=== PATIENT | male | born 1955 | race Two or more races ===

== ENCOUNTER → 2020-05-15 | Emergency (ER) | payer MEDICARE, MEDICAID ==
[~2020-05-15] VITALS: Ht 182.9 cm; Wt 105.2 kg
[~2020-05-15] MED LIST: IOHEXOL 300 MG/ML 100ML BOTTLE IJ ONE; SODIUM CHLORIDE 0.9% 1,000 ML IV ONE
[2020-05-15 03:11] LABS: Basophils # (auto) 0.1 10 ^3/uL (0-0.2); Basophils % (auto) 0.7 % (0.0-2.0); Eosinophils # (auto) 0.2 10 ^3/uL (0-0.8); Eosinophils % (auto) 2.6 % (0.0-7.0); Hematocrit 38.7 % (41.0-53.0); Hemoglobin 13.3 g/dL (13.5-17.5); Lymphocytes # (auto) 1.4 10 ^3/uL (0.4-5.4); Lymphocytes % (auto) 19.1 % (10.0-50.0); Mean Corpuscular Hemoglobin 30.4 pg (28.0-32.0); Mean Corpuscular Hgb Conc. 34.4 g/dL (32.0-36.0); Mean Corpuscular Volume 88.5 fL (80.0-100.0); Monocytes # (auto) 0.8 10 ^3/uL (0-1.3); Monocytes % (auto) 10.3 % (0.0-12.0); Neutrophils # (auto) 4.9 10 ^3/uL (1.6-8.6); Neutrophils % (auto) 67.3 % (37.0-80.0); Platelet Count (auto) 176 10^3/uL (140-450); Red Blood Cells 4.37 10^6/uL (4.5-5.90); Red Cell Distribution Width 13.8 % (11.8-14.3); White Blood Cell 7.3 10^3/uL (4.4-10.8)
[2020-05-15 03:31] LABS: Albumin 3.8 g/dL (3.4-5.0); Amylase 55 U/L (25-115); Anion Gap 3 (5-15); Calcium 8.8 mg/dL (8.5-10.1); Carbon Dioxide 26 mmol/L (21-32); Chloride 109 mmol/L (98-107); Glucose 99 mg/dL (74-106); Lipase 91 U/L (73-393); Potassium 3.7 mmol/L (3.5-5.1); Sodium 138 mmol/L (136-145)
[2020-05-15 03:33] LABS: Alanine Aminotransferase 26 U/L (16-61); Aspartate Aminotransferase 12 U/L (15-37); Bilirubin, Total 0.9 mg/dL (0.2-1.0); GFR African American 98 mL/min; GFR Non-African American 81 mL/min; Total Protein 7.5 g/dL (6.4-8.2)
[2020-05-15 03:36] LABS: Alkaline Phosphatase 116 U/L (45-117)
[2020-05-15 03:40] LABS: BUN/Creatinine Ratio 10.1; Blood Urea Nitrogen 10 mg/dL (7-18)
[2020-05-15 03:45] LABS: Urine WBC None Seen /hpf (0 - 3)
[2020-05-15 03:54] LABS: Urine Bacteria NONE SEEN /hpf (None Seen); Urine Blood Negative /uL (Negative); Urine Specific Gravity 1.005 (1.001-1.035)
[2020-05-15 04:49] VITALS: BP 128/59
== END | disposition home or self-care (01) ==
LOC: EDBD 02:15 → ER 02:18
DX: K64.8 Other hemorrhoids (principal); I10 Essential (primary) hypertension; F41.9 Anxiety disorder, unspecified
CPT/HCPCS: 36415; 74177; 80053; 81001; 82150; 83605; 83690; 83880; 84484; 85025; 86850; 86900; 86901; 93005; 96360; 99285; J7030; Q9967

== ENCOUNTER 2025-02-10 08:10 | Inpatient (IN) | payer MEDICARE, MEDICAID ==
[~2025-02-10] VITALS: Ht 180.3 cm; Wt 105.6 kg
--- NOTE | 2025-02-10 08:47 | ED.PDOC ---
History of Present Illness HPI Comments Year old male came to the ER stating that he has been having abdominal pain which started few days ago progressively getting worse. Abdominal pain mostly in the left lower quadrant with no radiation of the pain. Patient had similar pain a month ago where he was treated at a different hospital with a diagnosis of diverticulitis. History of hypertension coronary artery disease. Denies any other symptoms. Chief Complaint: Abdominal Pain Time Seen by MD: 08:39 Primary Care Provider: jeaneth Reviewed Notes: Nurses Notes, Medications, Allergies Allergies: Coded Allergies: NO KNOWN ALLERGIES (Unverified , 05/15/20) Home Meds Reported Medications Doxazosin Mesylate (Doxazosin Mesylate) 4 Mg Tab, 1 TAB PO DAILY 02/10/25 Lisinopril (Lisinopril) 10 Mg Tab, 1 TAB PO DAILY 02/10/25 Aspirin (Aspirin Low Dose) 81 Mg Tab, 1 TAB PO DAILY 02/10/25 Hctz (Hydrochlorothiazide) 25 Mg Tab, 1 TAB PO DAILY 02/10/25 Information Source: Patient Mode of Arrival: Ambulatory Severity: Moderate Timing: Days Duration: Since onset Past Medical History PAST MEDICAL HISTORY: HTN, DC Surgical History: Denies all surgeries Family History Family History: Reviewed,noncontributory to illness Social History Smoker: Non-Smoker Alcohol: Denies ETOH Use Drugs: Denies Drug Use Lives In: Home Constitutional: denies: chills, diaphoresis, fatigue, fever, malaise, sweats, weakness, others EENTM: denies: blurred vision, double vision, ear bleeding, ear discharge, ear drainage, ear pain, ear ringing, eye pain, eye redness, hearing loss, mouth pain, mouth swelling, nasal discharge, nose bleeding, nose congestion, nose pain, photophobia, tearing, throat pain, throat swelling, voice changes, others Respiratory: denies: cough, hemoptysis, orthopnea, SOB at rest, shortness of breath, SOB with excertion, stridor, wheezing, others Cardiovascular: denies: chest pain, dizzy spells, diaphoresis, Dyspnea on exertion, edema, irregular heart beat, left arm pain, lightheadedness, palpitations, PND, syncope, others Gastrointestinal: reports: abdominal pain; denies: abdomen distended, blood streaked bowels, constipated, diarrhea, dysphagia, difficulty swallowing, hematemesis, melena, nausea, poor appetite, poor fluid intake, rectal bleeding, rectal pain, vomiting, others Genitourinary: denies: burning, dysuria, flank pain, frequency, hematuria, incontinence, penile discharge, penile sore, pain, testicle pain, testicle swelling, urgency, others Neurological: denies: dizziness, fainting, headache, left sided numbness, left sided weakness, numbness, paresthesia, pre-existing deficit, right sided nu mbness, right sided weakness, seizure, speech problems, tingling, tremors, weakness, others Musculoskeletal: denies: back pain, gout, joint pain, joint swelling, muscle pain, muscle stiffness, neck pain, others Integumetry: denies: bruises, change in color, change in hair/nails, dryness, laceration, lesions, lumps, rash, wounds, others Allergic/Immunocompromised: denies: Difficulty Healing, Frequent Infections, Hives, Itching, others Hematologic/Lymphatic: denies: anemia, blood clots, easy bleeding, easy bruising, swollen glands, others Endocrine: denies: excessive hunger, excessive sweating, excessive thirst, excessive urination, flushing, intolerance to cold, intolerance to heat, unexplained weight gain, unexplained weight loss, others Psychiatric: denies: anxiety, bipolar disorder, depression, hopeless, panic disorder, schizophrenia, sleepless, suicidal, others Physical Exam General Appearance: Moderate Distress HEENT: Normal ENT Inspection, Pharynx Normal, TMs Normal Neck: Full Range of Motion, Non-Tender, Normal, Normal Inspection Respiratory: Chest Non-Tender, Lungs Clear, No Accessory Muscle Use, No Respiratory Distress, Normal Breath Sounds Cardiovascular: No Edema, No JVD, No Murmur, No Gallop, Normal Peripheral Pulses, Regular Rate/Rhythm Breast Exam: Deferred Gastrointestinal: Diffuse Genitalia: Deferred Pelvic: Deferred Rectal: Deferred Extremities: No calf tenderness, Normal capillary refill, Normal inspection, Normal range of motion, Non-tender, No pedal edema Musculoskeletal : Apperance: Normal Neurologic: Alert, promotions specialist II-XII nml as Tested, No Motor Deficits, Normal Affect, Normal Mood, No Sensory Deficits Cerebellar Function: Normal Reflexes: Normal Skin: Dry, Normal Color, Warm Peripheral Pulses: 3+ Radial (R), 3+ Radial (L) Lymphatic: No Adenopathy Was a procedure done? Was a procedure done?: No EKG EKG : Pulse Rate (adult): 64 Cardiac Rhythm: NSR Differential Dx Considerations may include: Diverticulitis Electrolyte imbalance X-Ray, Labs, Meds, VS Vital Signs Date Time Temp Pulse Resp B/P (MAP) Pulse Ox O2 Delivery O2 Flow Rate FiO2 02/10/25 09:55 60 16 108/69 02/10/25 09:28 73 20 95 Room Air* 0 21 02/10/25 09:28 98.2 73 20 104/62 (76) 95 98.2 02/10/25 09:20 73 20 104/62 02/10/25 08:54 64 02/10/25 08:52 64 02/10/25 08:27 97.9 79 17 108/81 (90) 95 97.9 Lab Test 02/10/25 08:51 02/10/25 08:46 Range/Units Urine Color Yellow Yellow Urine Clarity Clear Clear Urine pH 5.5 5.0-9.0 Urine Specific [place] 1.024 1.001-1.035 Urine Protein Negative Negative Urine Ketones Negative Negative Urine Blood Negative Negative /uL Urine Nitrite Negative Negative Urine Bilirubin Negative Negative Urine Urobilinogen Normal Negative mg/dL Urine Leukocyte Esterase Negative Negative /uL Urine RBC 2 0 - 3 /hpf Urine Microscopic WBC < 1 0-3 /HPF Urine Squamous Epithelial Cells Few <5 /hpf Urine Bacteria None seen None Seen /hpf Urine Mucus Few None Seen Urine Glucose Normal Normal mg/dL White Blood Count 9.3 4.4-10.8 10^3/uL Red Blood Count 4.79 4.5-5.90 10^6/uL Hemoglobin 14.7 13.5-17.5 g/dL Hematocrit 42.4 41.0-53.0 % Mean Corpuscular Volume 88.6 80.0-100.0 fL Mean Corpuscular Hemoglobin 30.7 28.0-32.0 pg Mean Corpuscular Hemoglobin Concent 34.6 32.0-36.0 g/dL Red Cell Distribution Width 13.9 11.8-14.3 % Platelet Count 174 140-450 10^3/uL Mean Platelet Volume 9.0 6.9-10.8 fL Neutrophils (%) (Auto) 74.1 37.0-80.0 % Lymphocytes (%) (Auto) 14.7 10.0-50.0 % Monocytes (%) (Auto) 8.0 0.0-12.0 % Eosinophils (%) (Auto) 2.7 0.0-7.0 % Basophils (%) (Auto) 0.5 0.0-2.0 % Neutrophils # (Auto) 6.9 1.6-8.6 10 ^3/uL Lymphocytes # (Auto) 1.4 0.4-5.4 10 ^3/uL Monocytes # (Auto) 0.7 0-1.3 10 ^3/uL Eosinophils # (Auto) 0.3 0-0.8 10 ^3/uL Basophils # (Auto) 0 0-0.2 10 ^3/uL Nucleated Red Blood Cells 0.0 % Sodium Level 139 136-145 mmol/L Potassium Level 3.7 3.5-5.1 mmol/L Chloride Level 105 98-107 mmol/L Carbon Dioxide Level 27 20-31 mmol/L Anion Gap 7 5-15 Blood Urea Nitrogen 17 9-23 mg/dL Creatinine 1.10 0.700-1.30 mg/dL Glomerular Filtration Rate Calc 72 >90 mL/min BUN/Creatinine Ratio 15.5 10.0-20.0 Serum Glucose 110 H 74-106 mg/dL Calcium Level 9.6 8.7-10.4 mg/dL Current Medications Medications (Trade) Dose Ordered Sig/Callie Route Start Time Stop Time Status Last Admin Morphine Sulfate 4 mg ONCE ONCE IV 02/10/25 08:45 02/10/25 08:46 DC 02/10/25 09:20 Ondansetron HCl (Zofran) 4 mg ONCE ONCE IV 02/10/25 08:45 02/10/25 08:46 DC 02/10/25 09:19 Ceftriaxone Sodium 50 ml @ 100 mls/hr ONCE ONCE IV 02/10/25 09:45 02/10/25 10:14 DC 02/10/25 10:33 Metronidazole 100 ml @ 100 mls/hr ONCE ONCE IV 02/10/25 09:45 02/10/25 10:44 DC 02/10/25 09:[address] [address] Ph: [phone] DIAGNOSTIC IMAGING Diagnostic Imaging Report : [id number] Signed PATIENT: GERRY LEWIS ACCT: [id number] UNIT: [id number] : 1955 LOC: ER ROOM / BED: / AGE / SEX: 69 / M ADM STATUS: REG ER SERVICE 0 ORDERING PHYSICIAN: JF BOWMAN MD PROCEDURE(s): ABPL - CT AB PEL WO CON-NO ORAL OR IV REASON: diverticulitis ORDER NUMBER(s): [id number], ACCESSION NUMBER(s): [id number] CT CT AB PEL WO CON-NO ORAL OR IV INDICATION: diverticulitis EXAM DATE: 02/10/2025 08:55 AM COMPARISON: None RADIATION DOSE: CTDIvol: 17.32 mGy, DLP: 1102.27 mGy*cm PROCEDURE: Helical CT images were obtained of the abdomen and pelvis without IV contrast Sagittal and coronal reconstructions are provided. ORAL CONTRAST: None. ADDITIONAL IMAGES / REFORMATS: None All CT scans at this medical facility are performed using dose modulation techniques as appropriate to a performed exam including the following: Automated exposure control was utilized; adjustment of the MA and/or KV according to patient size; and use of iterative reconstruction technique. FINDINGS: LUNG BASE: Normal. LIVER: Normal. GALLBLADDER AND BILIARY TREE: Gallstones are seen in the gallbladder. No intra- or extrahepatic biliary ductal dilation. PANCREAS: Normal. SPLEEN: Normal. BOWEL: There is moderate colonic diverticulosis with mild fat stranding at the sigmoid could be mild diverticulitis.. The appendix is normal. ADRENALS: Normal. KIDNEYS AND URETER: Normal. BLADDER: Normal. REPRODUCTIVE ORGANS: Normal. LYMPH NODES:No lymphadenopathy. PERITONEUM: No ascites or free air. No other fluid collection. VESSELS: Scattered atherosclerotic calcifications are noted. Similar position of the aortic endograft with limb extenders. RETROPERITONEUM: Normal. ABDOMINAL WALL: There is postsurgical change with a abdominal hernia mesh repair. BONES: Scattered osseous degenerative changes are noted. IMPRESSION: Moderate colonic diverticulosis with mild fat stranding at the sigmoid could be mild diverticulitis. Cholelithiasis. ATED BY: GERARDO VICENTE MD DICTATED DATE/TIME: 02/10/25929 SIGNED BY: GERARDO VICENTE MD SIGNED DATE/TIME: 05/11/25 0930 CC: Patient alert. Complaining of abdominal pain. Vitals stable. Answering questions. He is tender in the left lower quadrant. Possible diverticulitis. Establish intravenous access. Was given fluids. Was given morphine. Was given Zofran. Was given Rocephin. Was given Flagyl. Explained to the patient. Continue monitoring. EKG reviewed does not show any acute changes. CT scan of the abdomen reveals diverticulitis. Time of 1ST Reevaluation: 08:46 Reevaluation 1ST: Unchanged Patient Education/Counseling: Diagnosis, Treatment, Prognosis Family Education/Counseling: No Family Present Departure 1 Departure Time of Disposition: 08:46 Impression: Primary Impression: Acute abdominal pain Additional Impression: Diverticulitis of intestine Qualified Codes: K57.92 - Diverticulitis of intestine, part unspecified, without perforation or abscess without bleeding Disposition: ADMITTED INPATIENT Admit to: Med Surg Condition: Guarded Critical Care Note Critical Care Time?: Yes (90 min-critical care time only) Critical care comment: Patient continues to have abdominal pain Stability Stability form required: No Heart Score Heart Score: Heart Score Response (Comments) Value History Slightly Suspicious 0 EKG Normal 0 Age >65 2 Risk Factors >3 or Hx ASHD 2 Troponin Normal limit 0 Total 4 I personally scribed for JF BOWMAN MD ([email or web address]) on 02/10/25 at 09:53. Electronically submitted by Oseas High ([email or web address]). JF BOWMAN MD February 10, 2025 08:47
[2025-02-10 08:52] LABS: Urine Bacteria None Seen /hpf (None Seen)
[2025-02-10 08:54] LABS: Basophils # (auto) 0 10 ^3/uL (0-0.2); Basophils % (auto) 0.5 % (0.0-2.0); Eosinophils # (auto) 0.3 10 ^3/uL (0-0.8); Eosinophils % (auto) 2.7 % (0.0-7.0); Hematocrit 42.4 % (41.0-53.0); Hemoglobin 14.7 g/dL (13.5-17.5); Lymphocytes # (auto) 1.4 10 ^3/uL (0.4-5.4); Lymphocytes % (auto) 14.7 % (10.0-50.0); Mean Corpuscular Hemoglobin 30.7 pg (28.0-32.0); Mean Corpuscular Hgb Conc. 34.6 g/dL (32.0-36.0); Mean Corpuscular Volume 88.6 fL (80.0-100.0); Monocytes # (auto) 0.7 10 ^3/uL (0-1.3); Neutrophils # (auto) 6.9 10 ^3/uL (1.6-8.6); Neutrophils % (auto) 74.1 % (37.0-80.0); Platelet Count (auto) 174 10^3/uL (140-450); Red Blood Cells 4.79 10^6/uL (4.5-5.90); Red Cell Distribution Width 13.9 % (11.8-14.3); White Blood Cell 9.3 10^3/uL (4.4-10.8)
--- NOTE | 2025-02-10 08:56 | ECG ---
[facility] Test Date: 2025-02-10 Test Time: 08:52:38 Pat Name: GERRY LEWIS Department: ER Room: 0251 Gender: M Principal Security Architect: MARISSA : 1955 Requested By: JF BOWMAN Order Number: [id number] Reading MD: Vishal Walter Measurements Intervals [place] Rate: 64 P: 261 MA: 103 QRS: 48 QRSD: 100 T: 10 QT: 409 QTc: 422 Interpretive Statements Ectopic atrial rhythm Short MA interval Electronically Signed On 02-13-2025 12:43:00 PDT by Vishal Walter Please click the below link to view image of tracing.
[2025-02-10 09:03] LABS: Urine Blood Negative /uL (Negative); Urine Clarity Clear (Clear); Urine Color Yellow (Yellow); Urine Mucus FEW (None Seen); Urine Protein, UAD Negative (Negative); Urine Specific Gravity 1.024 (1.001-1.035); Urine Squamous Epithelial Cell FEW /hpf (<5); Urine Urobilinogen Normal (Negative); Urine WBC < 1 /HPF (0-3); Urine pH 5.5 (5.0-9.0)
[2025-02-10 09:08] LABS: Chloride 105 mmol/L (98-107); Potassium 3.7 mmol/L (3.5-5.1); Sodium 139 mmol/L (136-145)
[2025-02-10 09:09] LABS: Anion Gap 7 (5-15); Carbon Dioxide 27 mmol/L (20-31)
[2025-02-10 09:10] LABS: Calcium 9.6 mg/dL (8.7-10.4)
[2025-02-10 09:15] LABS: BUN/Creatinine Ratio 15.5 (10.0-20.0); Blood Urea Nitrogen 17 mg/dL (9-23); Glucose 110 mg/dL (74-106)
[2025-02-10] MEDS: ONDANSETRON HCL 4 MG/2 ML VIAL IV ONE (09:19)
[2025-02-10] MEDS: MORPHINE SULFATE 4 MG/ML SYR/VIAL IV ONE (09:20)
[2025-02-10 09:28] VITALS: PULSE 73; RESP 20; O2SAT 95
--- NOTE | 2025-02-10 09:32 | DVH ---
CT CT AB PEL WO CON-NO ORAL OR IV INDICATION: diverticulitis EXAM DATE: 02/10/2025 08:55 AM COMPARISON: None RADIATION DOSE: CTDIvol: 17.32 mGy, DLP: 1102.27 mGy*cm PROCEDURE: Helical CT images were obtained of the abdomen and pelvis without IV contrast Sagittal and coronal reconstructions are provided. ORAL CONTRAST: None. ADDITIONAL IMAGES / REFORMATS: None All C T scans at this medical facility are performed using dose modulation techniques as appropriate to a p erformed exam including the following: Automated exposure control was utilized; adjustment of the MA and/or KV according to patient size; and use of iterative reconstruction technique. FINDINGS: LUNG BASE: Normal. LIVER: Normal. GALLBLADDER AND BILIARY TREE: Gallstones are seen in the gallbladder. No intra- or extrahepatic bilia ry ductal dilation. PANCREAS: Normal. SPLEEN: Normal. BOWEL: There is moderate colonic diverticulosis with mild fat stranding at the sigmoid could be mild diverticulitis.. The appendix is normal. ADRENALS: Normal. KIDNEYS AND URETER: Normal. BLADDER: Normal. REPRODUCTIVE ORGANS: Normal. LYMPH NODES:No lymphadenopathy. PERITONEUM: No ascites or free air. No other fluid collection. VESSELS: Scattered atherosclerotic calcifications are noted. Similar position of the aortic endograft with limb extenders. RETROPERITONEUM: Normal. ABDOMINAL WALL: There is postsurgical change with a abdominal hernia mesh repair. BONES: Scattered osseous degenerative changes are noted. IMPRESSION: Moderate colonic diverticulosis with mild fat stranding at the sigmoid could be mild diverticulitis. Cholelithiasis.
[2025-02-10] MEDS: metroNIDAZOLE 500MG/100ML 100 ML IV ONE (09:45)
[2025-02-10] MEDS: cefTRIAXone 1GM/50ML D5W 50 ML IV ONE (10:33)
[2025-02-10] MEDS ORDERED: DOXA4TAB83 PO ×2 (12:07→18:44)
[2025-02-10] MEDS ORDERED: LISI10TA34 PO (12:07)
[2025-02-10] MEDS ORDERED: HYDR25TA5 PO (12:07)
[2025-02-10] MEDS ORDERED: ASPI-325 PO (12:07)
[2025-02-10] MEDS ORDERED: ONDANSETRON HCL 4 MG/2 ML VIAL IV PRN (12:15)
[2025-02-10] MEDS ORDERED: HYDROcodone-ACET 5/325MG TAB PO PRN (12:15)
[2025-02-10] MEDS ORDERED: ACETAMINOPHEN 325 MG TAB PO PRN (12:15)
[2025-02-10] MEDS ORDERED: hydrALAZINE HCL 20 MG/ML VL IV PRN (12:15)
[2025-02-10] MEDS ORDERED: MORPHINE SULFATE INJ 2 MG/ml SYRG IV PRN (12:15)
--- NOTE | 2025-02-10 12:15 | DVHHP2 ---
History of Present Illness Reason for Visit: Abdominal pain History of Present Illness This 69-year-old male presents in the ED with a chief complaint of abdominal pain. The patient reports left lower quadrant abdominal pain started yesterday. Symptoms is associated with lightheadedness. Denies fever, chills, nausea, vomiting, diarrhea, or melena. Last bowel movement reported today. Past medical history of diverticulitis, hypertension, and obesity. Past Medical History As stated in HPI Past Surgical History Denies Family History Reviewed, non-contributory to the management of this case. Past Social History The patient lives at home, denies smoking, alcohol or illicit drugs abuse. Review of Systems Constitutional: Yes: Malaise; No: Fever, Chills, Sweats, Weakness, Other Eyes: No: Pain, Vision change, Conjunctivae inflammation, Eyelid inflammation, Other, Redness ENT: No: Ear pain, Ear discharge, Nose pain, Nose discharge, Nose congestion, Mouth pain, Mouth swelling, Throat pain, Throat swelling, Other Respiratory: No: Cough, Dry, Shortness of breath, SOB with excertion, Wheezing, Hemoptysis, Pleuritic Pain, Sputum, Wheezing, Other Cardiovascular: No: Chest Pain, Palpitations, Orthopnea, Paroxysmal Noc. Dyspnea, Edema, Lt Headedness, Other Gastrointestinal: Abdominal Pain; No: Nausea, Vomiting, Diarrhea, Constipation, Melena, Hematochezia, Other Genitourinary: No Dysuria, No Frequency, No Incontinence, No Hematuria, No Retention, No Other Musculoskeletal: No: other, neck pain, shoulder pain, arm pain, back pain, hand pain, leg pain, foot pain Skin: No: Rash, Lesions, Jaundice, Bruising, Other Neurological: No: Weakness, Numbness, Incoordination, Change in speech, Confusion, Seizures, Other Allergies: Coded Allergies: NO KNOWN ALLERGIES (Unverified , 05/15/20) Medications Current Medications Medications Dose Ordered Sig/Callie Route Start Time Stop Time Status Last Admin Dose Admin Sodium Chloride 1,000 ml @ 75 mls/hr [id number] IV 02/10/25 12:15 UNV Acetaminophen/ Hydrocodone Bitart 1 tab Q4HP PRN PO 02/10/25 12:15 UNV Ondansetron HCl 4 mg Q4HP PRN IV 02/10/25 12:15 UNV Enoxaparin Sodium 40 mg DAILY SC 5/12/25 10:00 UNV Acetaminophen 650 mg Q6HP PRN PO 02/10/25 12:15 UNV Morphine Sulfate 2 mg Q4HPRN PRN IV 02/10/25 12:15 UNV Metronidazole 100 ml @ 100 mls/hr Q8HR IV 02/10/25 14:00 UNV Ceftriaxone Sodium 50 ml @ 100 mls/hr DAILY@09 IV 02/11/25 09:00 UNV Pantoprazole Sodium 40 mg DAILY IV 02/11/25 10:00 UNV Hydralazine HCl 10 mg Q6HP PRN IV 02/10/25 12:15 UNV Aspirin 81 mg DAILY PO 02/11/25 10:00 UNV Hydrochlorothiazide 25 mg DAILY PO 02/11/25 10:00 UNV Patient Own Medication 1 tab DAILY PO 02/11/25 10:00 UNV Patient Own Medication 1 tab DAILY PO 02/11/25 10:00 UNV Exam Vital Signs Vital Signs Date Time Temp Pulse Resp B/P (MAP) Pulse Ox O2 Delivery O2 Flow Rate FiO2 02/10/25 09:55 60 16 108/69 02/10/25 09:28 95 Room Air* 0 21 02/10/25 09:28 98.2 98.2 General Appearance: Alert, Oriented X3, Cooperative, mild distress HEENT: Atraumatic, PERRLA Respiratory: Clear to auscultation, Normal air movement Cardiovascular: Regular rate, Normal S1, Normal S2 Abdominal: Normal bowel sounds, Soft, Other (Mild tenderness to left lower quadrant) Extremities: No clubbing, No cyanosis, No edema Skin: No rashes, No breakdown Neuro: Normal gait, Normal speech Psych/Mental Status: Mental status NL Labs/Xrays Labs Test 02/10/25 08:51 02/10/25 08:46 Range/Units Urine Color Yellow Yellow Urine Clarity Clear Clear Urine pH 5.5 5.0-9.0 Urine Specific [place] 1.024 1.001-1.035 Urine Protein Negative Negative Urine Ketones Negative Negative Urine Blood Negative Negative /uL Urine Nitrite Negative Negative Urine Bilirubin Negative Negative Urine Urobilinogen Normal Negative mg/dL Urine Leukocyte Esterase Negative Negative /uL Urine RBC 2 0 - 3 /hpf Urine Microscopic WBC < 1 0-3 /HPF Urine Squamous Epithelial Cells Few <5 /hpf Urine Bacteria None seen None Seen /hpf Urine Mucus Few None Seen Urine Glucose Normal Normal mg/dL White Blood Count 9.3 4.4-10.8 10^3/uL Red Blood Count 4.79 4.5-5.90 10^6/uL Hemoglobin 14.7 13.5-17.5 g/dL Hematocrit 42.4 41.0-53.0 % Mean Corpuscular Volume 88.6 80.0-100.0 fL Mean Corpuscular Hemoglobin 30.7 28.0-32.0 pg Mean Corpuscular Hemoglobin Concent 34.6 32.0-36.0 g/dL Red Cell Distribution Width 13.9 11.8-14.3 % Platelet Count 174 140-450 10^3/uL Mean Platelet Volume 9.0 6.9-10.8 fL Neutrophils (%) (Auto) 74.1 37.0-80.0 % Lymphocytes (%) (Auto) 14.7 10.0-50.0 % Monocytes (%) (Auto) 8.0 0.0-12.0 % Eosinophils (%) (Auto) 2.7 0.0-7.0 % Basophils (%) (Auto) 0.5 0.0-2.0 % Neutrophils # (Auto) 6.9 1.6-8.6 10 ^3/uL Lymphocytes # (Auto) 1.4 0.4-5.4 10 ^3/uL Monocytes # (Auto) 0.7 0-1.3 10 ^3/uL Eosinophils # (Auto) 0.3 0-0.8 10 ^3/uL Basophils # (Auto) 0 0-0.2 10 ^3/uL Nucleated Red Blood Cells 0.0 % Sodium Level 139 136-145 mmol/L Potassium Level 3.7 3.5-5.1 mmol/L Chloride Level 105 98-107 mmol/L Carbon Dioxide Level 27 20-31 mmol/L Anion Gap 7 5-15 Blood Urea Nitrogen 17 9-23 mg/dL Creatinine 1.10 0.700-1.30 mg/dL Glomerular Filtration Rate Calc 72 >90 mL/min BUN/Creatinine Ratio 15.5 10.0-20.0 Serum Glucose 110 H 74-106 mg/dL Calcium Level 9.6 8.7-10.4 mg/dL PATRICIA: diverticulitis ORDER NUMBER(s): [id number], ACCESSION NUMBER(s): [id number] CT CT AB PEL WO CON-NO ORAL OR IV INDICATION: diverticulitis EXAM DATE: 02/10/2025 08:55 AM COMPARISON: None RADIATION DOSE: CTDIvol: 17.32 mGy, DLP: 1102.27 mGy*cm PROCEDURE: Helical CT images were obtained of the abdomen and pelvis without IV contrast Sagittal and coronal reconstructions are provided. ORAL CONTRAST: None. ADDITIONAL IMAGES / REFORMATS: None All CT scans at this medical facility are performed using dose modulation techniques as appropriate to a performed exam including the following: Automated exposure control was utilized; adjustment of the MA and/or KV according to patient size; and use of iterative reconstruction technique. FINDINGS: LUNG BASE: Normal. LIVER: Normal. GALLBLADDER AND BILIARY TREE: Gallstones are seen in the gallbladder. No intra- or extrahepatic biliary ductal dilation. PANCREAS: Normal. SPLEEN: Normal. BOWEL: There is moderate colonic diverticulosis with mild fat stranding at the sigmoid could be mild diverticulitis.. The appendix is normal. ADRENALS: Normal. KIDNEYS AND URETER: Normal. BLADDER: Normal. REPRODUCTIVE ORGANS: Normal. LYMPH NODES:No lymphadenopathy. PERITONEUM: No ascites or free air. No other fluid collection. VESSELS: Scattered atherosclerotic calcifications are noted. Similar position of the aortic endograft with limb extenders. RETROPERITONEUM: Normal. ABDOMINAL WALL: There is postsurgical change with a abdominal hernia mesh repair. BONES: Scattered osseous degenerative changes are noted. IMPRESSION: Moderate colonic diverticulosis with mild fat stranding at the sigmoid could be mild diverticulitis. Cholelithiasis. Assessment/Plan Assessment/Plan # acute mild diverticulitis # hx of diverticulitis # acute left lower quadrant abdominal pain Admit to M/S unit Complete bowel rest IV fluid PPI Empiric antibiotics Pain control Monitor # hypertension Continue with lisinopril and hydrochlorothiazide Hydralazine as needed Monitor # BPH Doxazosin # obesity Lifestyle modification counseled on weight loss and regular exercise DVT prophylaxis Medical plan discussed with patient Plan discussed with: Patient My Orders Orders - JUAN HENDERSON [employer]QUIPMENT MECH[employer] Procedure Category Date Status Time Admit ADMIT 02/10/25 Transmitted 12:03 Code Status CODE 02/10/25 Transmitted 12:03 Sodium Chloride 0.9% PHA 02/10/25 Logged 12:15 Hydrocodone-Acet PHA 02/10/25 Logged 5/325mg Tab ([place] 12:15 Ondansetron Hcl PHA 02/10/25 Logged (Zofran) 12:15 Enoxaparin Sodium PHA 02/11/25 Logged (Lovenox) 10:00 Fall Risk Precautions MONICA 02/10/[address] 12:03 Complete Blood Count LAB 02/11/25 Verified 04:00 Comprehensive LAB 02/11/25 Verified Metabolic Panel 04:00 Npo (Nothing By DIET 02/10/25 Transmitted Mouth) Diet Lunch Condition: Fair MONICA 02/10/25 In Process 12:03 Acetaminophen Tablet PHA 02/10/25 Logged (Tylenol Tablet) 12:15 Morphine Sulfate PHA 02/10/25 Logged Injection 12:15 Blood Culture DAVID 02/10/25 Logged 12:03 Metronidazole PHA 02/10/25 Logged 500mg/100ml (Flagyl 14:00 Ceftriaxone 1gm/50ml PHA 02/11/25 Logged D5w (Rocephin) 09:00 Pantoprazole PHA 02/10/25 Logged (Protonix) 12:15 Pantoprazole PHA 02/11/25 Logged (Protonix) 10:00 Hydralazine Injection PHA 02/10/25 Logged (Apresoline Inject 12:15 Aspirin Enteric PHA 02/11/25 Logged Coated Tablet 10:00 Hydrochlorothiazide PHA 02/11/25 Logged Tablet (Hydrochlorot 10:00 (Nf) Doxazosin PHA 02/11/25 Logged Mesylate 10:00 (Nf) Lisinopril PHA 02/11/25 Logged 10:00 Date of Service: February 10, 2025 Billing Provider: JUAN HENDERSON Common Visit Codes: 42999-PHIYCDC INP/OBS CARE (HIGH) Consultation Codes: 44973-[id number] CONSULT <45MIN JUAN HENDERSON February 10, 2025 12:15
[2025-02-10] MEDS: SODIUM CHLORIDE 0.9% 1,000 ML IV SCH (12:47)
[2025-02-10 14:00] VITALS: BP 116/64; PULSE 51; RESP 18; TEMP 98.5; O2SAT 96
[2025-02-10 14:01] VITALS: BP 116/64; PULSE 51; RESP 18; TEMP 98.5; O2SAT 96
[2025-02-10] MEDS: PANTOPRAZOLE 40 MG/10 ML VIAL INJ IV ONE (15:12)
[2025-02-10] MEDS: metroNIDAZOLE 500MG/100ML 100 ML IV SCH (16:18)
[2025-02-10 18:02] VITALS: BP 132/61; PULSE 56; RESP 16; TEMP 98.1; O2SAT 96
[2025-02-10] MEDS ORDERED: [UNRECOGNIZED DRUG - CODE] PO (18:44)
[2025-02-10] MEDS ORDERED: IBUP-1455 PO (18:44)
[2025-02-10] MEDS ORDERED: ATOR80TA PO (18:44)
[2025-02-10 20:00] VITALS: RESP 18; O2SAT 97
[2025-02-10 21:00] VITALS: BP 127/63; PULSE 53; RESP 14; TEMP 98.1; O2SAT 95
[2025-02-11] VITALS (7 sets, daily range): BP systolic 105–131; BP diastolic 60–67; PULSE 46–65; RESP 14–18; TEMP 97.6–98.3; O2SAT 94–98
[2025-02-11 07:55] LABS: Alanine Aminotransferase 24 U/L (7-40); Albumin 3.9 g/dL (3.2-4.8); Alkaline Phosphatase 94 U/L (46-116); Anion Gap 9 (5-15); Aspartate Aminotransferase 15 U/L (13-40); BUN/Creatinine Ratio 16.7 (10.0-20.0); Blood Urea Nitrogen 16 mg/dL (9-23); Carbon Dioxide 26 mmol/L (20-31); Chloride 106 mmol/L (98-107); Glucose 95 mg/dL (74-106); Sodium 141 mmol/L (136-145); Total Protein 6.4 g/dL (5.7-8.2)
[2025-02-11 07:56] LABS: Bilirubin, Total 1.2 mg/dL (0.2-1.0)
[2025-02-11 07:57] LABS: Potassium 3.5 mmol/L (3.5-5.1)
[2025-02-11 08:09] LABS: Basophils # (auto) 0 10 ^3/uL (0-0.2); Basophils % (auto) 0.4 % (0.0-2.0); Eosinophils # (auto) 0.3 10 ^3/uL (0-0.8); Eosinophils % (auto) 4.3 % (0.0-7.0); Hematocrit 38.1 % (41.0-53.0); Hemoglobin 12.9 g/dL (13.5-17.5); Lymphocytes # (auto) 1.4 10 ^3/uL (0.4-5.4); Lymphocytes % (auto) 21.1 % (10.0-50.0); Mean Corpuscular Hemoglobin 30.1 pg (28.0-32.0); Mean Corpuscular Hgb Conc. 33.9 g/dL (32.0-36.0); Mean Corpuscular Volume 88.8 fL (80.0-100.0); Monocytes # (auto) 0.7 10 ^3/uL (0-1.3); Monocytes % (auto) 10.2 % (0.0-12.0); Neutrophils # (auto) 4.1 10 ^3/uL (1.6-8.6); Nucleated Red Blood Cells % 0.1 %; Platelet Count (auto) 145 10^3/uL (140-450); Red Cell Distribution Width 13.8 % (11.8-14.3); White Blood Cell 6.4 10^3/uL (4.4-10.8)
[2025-02-11] MEDS ORDERED: hydroCHLOROthiazide 25 MG TAB PO SCH (10:00)
[2025-02-11] MEDS: PANTOPRAZOLE 40 MG/10 ML VIAL INJ IV SCH (10:46)
[2025-02-11] MEDS: cefTRIAXone 1GM/50ML D5W 50 ML IV SCH (10:46)
[2025-02-11] MEDS: ASPirin-EC 81 mg tab PO SCH (10:46)
[2025-02-11] MEDS: ENOXAPARIN SOD 40 MG/0.4 ML SYRINGE SC SCH (10:48)
--- NOTE | 2025-02-11 11:23 | DVHPN2 ---
Progress Note Date Seen: February 11, 2025 Medical Necessity Reason Pt with a Central, PICC or Fol: No Subjective Patient reports: No new complaints Review of Systems: HEENT:Normal, CVS:Normal, RESPIRATORY:Normal, GI:Normal, :Normal, MSK:Normal, NEURO:Normal Objective vital signs Vital Sign Date Time Temp Pulse Resp B/P (MAP) Pulse Ox O2 Delivery O2 Flow Rate FiO2 02/11/25 09:00 97.9 48 17 119/67 (84) 96 97.9 02/11/25 08:00 Room Air* 0 21 Total Intake and Output 02/10/25 02/10/25 02/11/25 15:00 23:00 07:00 Intake Total 150 ml 450 ml 700 ml Balance 150 ml 450 ml 700 ml medications Current Medications Medications Dose Ordered Sig/Callie Route Start Time Stop Time Status Last Admin Dose Admin Sodium Chloride 1,000 ml @ 75 mls/hr [id number] IV 02/10/25 12:15 02/11/25 01:35 75 MLS/HR Acetaminophen/ Hydrocodone Bitart 1 tab Q4HP PRN PO 02/10/25 12:15 Ondansetron HCl 4 mg Q4HP PRN IV 02/10/25 12:15 Enoxaparin Sodium 40 mg DAILY SC 02/11/25 10:00 02/11/25 10:48 40 MG Acetaminophen 650 mg Q6HP PRN PO 02/10/25 12:15 Morphine Sulfate 2 mg Q4HPRN PRN IV 02/10/25 12:15 Metronidazole 100 ml @ 100 mls/hr Q8HR IV 02/10/25 16:00 02/11/25 05:08 100 MLS/HR Ceftriaxone Sodium 50 ml @ 100 mls/hr DAILY@09 IV 02/11/25 09:00 02/11/25 10:46 100 MLS/HR Pantoprazole Sodium 40 mg DAILY IV 02/11/25 10:00 02/11/25 10:46 40 MG Hydralazine HCl 10 mg Q6HP PRN IV 02/10/25 12:15 Aspirin 81 mg DAILY PO 02/11/25 10:00 02/11/25 10:46 81 MG Hydrochlorothiazide 25 mg DAILY PO 02/11/25 10:00 Doxazosin Mesylate 4 mg DAILY PO 02/11/25 10:00 Lisinopril 10 mg DAILY PO 02/11/25 10:00 Examination: GENERAL:Normal, HEENT:Normal, NECK:Normal, LUNGS:Normal, CVS:Normal, ABDOMEN:Normal, MSK:Normal, SKIN:Normal, NEURO:Normal, :Normal laboratory and microbiology Laboratory Tests 02/11/25 06:58 Test 02/11/25 06:58 Range/Units Serum Glucose 95 74-106 mg/dL Problem List/Assessment/Plan Problem List/Assessment/Plan #1 acute diverticulitis: iv antibiotics, ivf #2 htn #3 cad #4 gallstones #5 obesity #6 h/o prostate cancer advance care planning- full code- time spent 18 mins Plan discussed with: Patient Date of Service: February 11, 2025 Billing Provider: BRAYAN ZAYAS MD Common Visit Codes: [id number] INP/OBS CARE(HIGH) Secondary Visit Codes: [id number] CARE PLAN 30 MINUTES BRAYAN ZAYAS MD February 11, 2025 11:23
[2025-02-11] MEDS: DOXAZOSIN MESYL 2 MG TAB PO SCH ×2 (14:55→22:00)
[2025-02-11] MEDS: LISINOPRIL 5 MG TAB PO SCH (14:55)
[2025-02-12] VITALS (8 sets, daily range): BP systolic 112–134; BP diastolic 50–66; PULSE 54–67; RESP 14–20; TEMP 97.5–98.1; O2SAT 94–100
[2025-02-12 07:45] LABS: Basophils # (auto) 0 10 ^3/uL (0-0.2); Basophils % (auto) 0.2 % (0.0-2.0); Eosinophils # (auto) 0.2 10 ^3/uL (0-0.8); Hematocrit 38.4 % (41.0-53.0); Hemoglobin 12.9 g/dL (13.5-17.5); Lymphocytes # (auto) 1.2 10 ^3/uL (0.4-5.4); Lymphocytes % (auto) 17.4 % (10.0-50.0); Mean Corpuscular Hemoglobin 30.1 pg (28.0-32.0); Mean Corpuscular Hgb Conc. 33.6 g/dL (32.0-36.0); Mean Corpuscular Volume 89.7 fL (80.0-100.0); Monocytes # (auto) 0.7 10 ^3/uL (0-1.3); Monocytes % (auto) 9.8 % (0.0-12.0); Neutrophils # (auto) 4.7 10 ^3/uL (1.6-8.6); Neutrophils % (auto) 69.6 % (37.0-80.0); Platelet Count (auto) 146 10^3/uL (140-450); Red Blood Cells 4.29 10^6/uL (4.5-5.90); White Blood Cell 6.8 10^3/uL (4.4-10.8)
--- NOTE | 2025-02-12 10:49 | DVHPN2 ---
Progress Note Date Seen: February 12, 2025 Medical Necessity Reason Pt with a Central, PICC or Fol: No Subjective Patient reports: No new complaints Review of Systems: HEENT:Normal, CVS:Normal, RESPIRATORY:Normal, GI:Normal, :Normal, MSK:Normal, NEURO:Normal Objective vital signs Vital Sign Date Time Temp Pulse Resp B/P (MAP) Pulse Ox O2 Delivery O2 Flow Rate FiO2 02/12/25 10:39 137/63 02/12/25 09:00 97.7 61 20 95 97.7 02/12/25 08:00 Room Air* 0 21 Total Intake and Output 02/11/25 02/11/25 02/12/25 15:00 23:00 07:00 Intake Total 50 ml 1050 ml 1100 ml Balance 50 ml 1050 ml 1100 ml medications Current Medications Medications Dose Ordered Sig/Callie Route Start Time Stop Time Status Last Admin Dose Admin Sodium Chloride 1,000 ml @ 75 mls/hr [id number] IV 02/10/25 12:15 02/12/25 05:30 75 MLS/HR Acetaminophen/ Hydrocodone Bitart 1 tab Q4HP PRN PO 02/10/25 12:15 Ondansetron HCl 4 mg Q4HP PRN IV 02/10/25 12:15 Acetaminophen 650 mg Q6HP PRN PO 02/10/25 12:15 Morphine Sulfate 2 mg Q4HPRN PRN IV 02/10/25 12:15 Metronidazole 100 ml @ 100 mls/hr Q8HR IV 02/10/25 16:00 02/12/25 05:31 100 MLS/HR Ceftriaxone Sodium 50 ml @ 100 mls/hr DAILY@09 IV 02/11/25 09:00 02/12/25 10:41 100 MLS/HR Pantoprazole Sodium 40 mg DAILY IV 02/11/25 10:00 02/12/25 10:40 40 MG Hydralazine HCl 10 mg Q6HP PRN IV 02/10/25 12:15 Aspirin 81 mg DAILY PO 02/11/25 10:00 02/12/25 10:39 81 MG Doxazosin Mesylate 4 mg DAILY PO 02/11/25 10:00 02/12/25 10:39 4 MG Lisinopril 10 mg DAILY PO 02/11/25 10:00 02/12/25 10:39 10 MG Doxazosin Mesylate 4 mg HS PO 02/11/25 22:00 02/11/25 22:00 4 MG Examination: GENERAL:Normal, HEENT:Normal, NECK:Normal, LUNGS:Normal, CVS:Normal, ABDOMEN:Normal, MSK:Normal, SKIN:Normal, NEURO:Normal, :Normal laboratory and microbiology Laboratory Tests 02/12/25 06:33 02/11/25 06:58 Test 02/11/25 06:58 Range/Units Serum Glucose 95 74-106 mg/dL Microbiology Date/Time Source Procedure Growth Status 02/10/25 12:58 Blood Blood Culture - Preliminary NO GROWTH AFTER 24 HOURS OF INCUBATION. Resulted Problem List/Assessment/Plan Problem List/Assessment/Plan #1 acute diverticulitis: iv antibiotics, ivf, advance diet #2 htn #3 cad #4 gallstones #5 obesity #6 h/o prostate cancer advance care planning- full code- time spent 18 mins Plan discussed with: Patient My Orders My Orders Orders - BRAYAN ZAYAS MD Procedure Category Date Status Time Clear Liq Diet DIET 02/11/25 Transmitted Lunch Doxazosin Mesyl PHA 02/11/25 In Process Tablet (Cardura 22:00 Date of Service: February 12, 2025 Billing Provider: BRAYAN ZAYAS MD Common Visit Codes: [id number] INP/OBS CARE(HIGH) BRAYAN ZAYAS MD February 12, 2025 10:49
[2025-02-13 01:00] VITALS: BP 116/65; PULSE 55; RESP 18; TEMP 98.3; O2SAT 96
[2025-02-13 05:00] VITALS: BP 116/65; PULSE 62; RESP 18; TEMP 98.2; O2SAT 95
[2025-02-13 09:00] VITALS: BP 102/55; PULSE 53; RESP 18; TEMP 98.1; O2SAT 96
--- NOTE | 2025-02-13 10:07 | DVHDS2 ---
Discharge Summary Date of Admission February 10, 2025 at 12:03 Date of Discharge: February 13, 2025 Labs/Diagnostic Data: Laboratory Results Test 02/12/25 06:33 02/11/25 06:58 02/10/25 08:51 White Blood Count 6.8 10^3/uL (4.4-10.8) Red Blood Count 4.29 10^6/uL (4.5-5.90) Hemoglobin 12.9 g/dL (13.5-17.5) Hematocrit 38.4 % (41.0-53.0) Mean Corpuscular Volume 89.7 fL (80.0-100.0) Mean Corpuscular Hemoglobin 30.1 pg (28.0-32.0) Mean Corpuscular Hemoglobin Concent 33.6 g/dL (32.0-36.0) Red Cell Distribution Width 14.0 % (11.8-14.3) Platelet Count 146 10^3/uL (140-450) Mean Platelet Volume 9.7 fL (6.9-10.8) Neutrophils (%) (Auto) 69.6 % (37.0-80.0) Lymphocytes (%) (Auto) 17.4 % (10.0-50.0) Monocytes (%) (Auto) 9.8 % (0.0-12.0) Eosinophils (%) (Auto) 3.0 % (0.0-7.0) Basophils (%) (Auto) 0.2 % (0.0-2.0) Neutrophils # (Auto) 4.7 10 ^3/uL (1.6-8.6) Lymphocytes # (Auto) 1.2 10 ^3/uL (0.4-5.4) Monocytes # (Auto) 0.7 10 ^3/uL (0-1.3) Eosinophils # (Auto) 0.2 10 ^3/uL (0-0.8) Basophils # (Auto) 0 10 ^3/uL (0-0.2) Nucleated Red Blood Cells 0.0 % Sodium Level 141 mmol/L (136-145) Potassium Level 3.5 mmol/L (3.5-5.1) Chloride Level 106 mmol/L (98-107) Carbon Dioxide Level 26 mmol/L (20-31) Anion Gap 9 (5-15) Blood Urea Nitrogen 16 mg/dL (9-23) Creatinine 0.96 mg/dL (0.700-1.30) Glomerular Filtration Rate Calc 85 mL/min (>90) BUN/Creatinine Ratio 16.7 (10.0-20.0) Serum Glucose 95 mg/dL (74-106) Calcium Level 9.0 mg/dL (8.7-10.4) Total Bilirubin 1.2 mg/dL (0.2-1.0) Aspartate Amino Transferase (AST) 15 U/L (13-40) Alanine Aminotransferase (ALT) 24 U/L (7-40) Alkaline Phosphatase 94 U/L (46-116) Total Protein 6.4 g/dL (5.7-8.2) Albumin 3.9 g/dL (3.2-4.8) Urine Color Yellow (Yellow) Urine Clarity Clear (Clear) Urine pH 5.5 (5.0-9.0) Urine Specific [place] 1.024 (1.001-1.035) Urine Protein Negative (Negative) Urine Ketones Negative (Negative) Urine Blood Negative /uL (Negative) Urine Nitrite Negative (Negative) Urine Bilirubin Negative (Negative) Urine Urobilinogen Normal mg/dL (Negative) Urine Leukocyte Esterase Negative /uL (Negative) Urine RBC 2 /hpf (0 - 3) Urine Microscopic WBC < 1 /HPF (0-3) Urine Squamous Epithelial Cells Few /hpf (<5) Urine Bacteria None seen /hpf (None Seen) Urine Mucus Few (None Seen) Urine Glucose Normal mg/dL (Normal) Other Laboratory Tests 02/12/25 06:33 02/11/25 06:58 Brief Hx & Hospital Course: SEE DICTATED NOTE Condition at Discharge: Good Final Diagnosis/Problems List ACUTE DIVERTICULITIS Discharge Disposition: Home Discharge Instruct/Medications Diet: Cardiac 2g Na,low cholest Activity: No Restrictions, As Tolerated Follow Up/Referral: FU WITH PCP IN 1 WK Medications: RESUME HOME MEDS SCRIPT TO PHARMACY DIETARY ADVICE Discharge Statement: "Patient was advised to return to the ER or call 911 if any headaches, dizziness, shortness of breath, chest pain, abdominal pain, bleeding, fevers, or worsening of medical condition. Patient was counseled about treatment plan, medications, possible side effects, patientverbalized understanding. All questions were answered to the best of my ability. This discharge took greater then 30 minutes in planning, reviewing documentation, counseling the patient, and discussing with other team members." ASSESSMENT ASSESSMENT Assessment ACUTE DIVERTICULITIS Date of Service: February 13, 2025 Billing Provider: BRAYAN ZAYAS MD Common Visit Codes: [id number]/[id number] DISCH DAY >30min BRAYAN ZAYAS MD February 13, 2025 10:07
[2025-02-13] MEDS ORDERED: MET500T PO (10:21)
[2025-02-13] MEDS ORDERED: LEVO500T91 PO (10:21)
--- NOTE | 2025-02-13 13:16 | DVHDS ---
DATE OF DISCHARGE: 02/13/2025 HISTORY OF PRESENT ILLNESS: The patient is a 69-year-old gentleman who was admitted with complaints of lower abdominal pain and lightheadedness and has a history of hypertension, coronary artery disease, and prostate cancer. HOSPITAL COURSE: The patient had a CT of the abdomen and pelvis that showed evidence of acute diverticulitis in the sigmoid along with cholelithiasis. The patient was treated with IV antibiotics. The patient is not tolerating an oral diet and will be discharged home to resume his home medications as well as to be on Levaquin 500 mg daily for 7 days and Flagyl 500 mg t.i.d. for 7 days. He will follow up with his primary in 1 week. The patient has also been advised about his dietary changes that he needs to make. FINAL DIAGNOSES: Therefore, * Acute diverticulitis. * Hypertension. * Coronary artery disease. * Gallstones. * Obesity. * History of prostate cancer. Time spent in discharge planning and review of plan with the patient and nursing was 37 minutes. MD TORIBIO Hernández/DAVID TID: [id number] RECEIPT: [id number]
== END 2025-02-13 11:48 | disposition home or self-care (01) | DRG 392 ==
LOC: ER 08:20 → OVERFLOW 12:03 → EAST 17:43
PROVIDERS: ADMIT Internal Medicine; ATTEND Internal Medicine
DX: K57.32 Diverticulitis of large intestine without perforation or abscess without bleeding (principal); K80.20 Calculus of gallbladder without cholecystitis without obstruction; E66.9 Obesity, unspecified; I10 Essential (primary) hypertension; N40.0 Benign prostatic hyperplasia without lower urinary tract symptoms; I25.10 Atherosclerotic heart disease of native coronary artery without angina pectoris; Z79.82 Long term (current) use of aspirin; Z79.899 Other long term (current) drug therapy; Z68.32 Body mass index [BMI] 32.0-32.9, adult; Z85.46 Personal history of malignant neoplasm of prostate
CPT/HCPCS: 36415; 74176; 80048; 80053; 81001; 85025; 87040; 93005; 96365; 96375; 99291; G0378; J2405; J2470; J3490

== ENCOUNTER 2025-03-01 09:10 | Emergency (ER) | payer MEDICARE, MEDICAID ==
[~2025-03-01] VITALS: Ht 348 cm; Wt 101.4 kg
[~2025-03-01 09:10] MED LIST changes: +ASPI-325 PO; +ATOR80TA PO; +DOXA4TAB83 PO; +HYDR25TA5 PO; +IBUP-1455 PO; -IOHEXOL 300 MG/ML 100ML BOTTLE IJ ONE; +LEVO500T91 PO; +LISI10TA34 PO; +MET500T PO; -SODIUM CHLORIDE 0.9% 1,000 ML IV ONE; +[UNRECOGNIZED DRUG - CODE] PO
--- NOTE | 2025-03-01 11:47 | ED.PDOC ---
History of Present Illness(SKN HPI Comments 69M presents to the ER w/ prior MHx of High Lipids, IN, HTN;SHx of AAA, Stent, Tonsillectomy, Hernia Repair and the c/c of a rash. Pt reports on having a non itchy rash on his bilateral upper extremities, back, ABD and bilateral Hands. Denies chills, fever, N/V/D, SOB, CP. Denies any other associated symptom's, modifiers, or recent injuries or sick contact at this time. Chief Complaint: Rash Time Seen by MD: 11:20 Primary Care Provider: jeaneth History of Present Illness: Nurses Notes, Medications, Allergies Allergies: Coded Allergies: NO KNOWN ALLERGIES (Unverified , 05/15/20) Home Meds Active Scripts Metronidazole (Metronidazole) 500 Mg Tab, 500 MG PO TID for 7 Days, #21 TAB Prov:BRAYAN ZAYAS MD 02/13/25 Levofloxacin Hemihydrate (LEVAQUIN 500 MG) 500 Mg Tab, 500 MG PO DAILY for 7 Days, #7 TAB Prov:BRAYAN ZAYAS MD 02/13/25 Reported Medications Ibuprofen Micronized (Ibuprofen) 800 Mg Tab, 800 MG PO Q8HPRN, TAB 02/10/25 Polyethylene Glycol 3350 (Glycolax) 17 Gm/Scoop Pow, 17 GM PO DAILY, POW 02/10/25 Doxazosin Mesylate (Doxazosin Mesylate) 4 Mg Tab, 4 MG PO HS for 30 Days, MG 02/10/25 Atorvastatin Calcium (Lipitor) 80 Mg Tab, 1 TAB PO DAILY, #30 TAB 5 Refills 02/10/25 Doxazosin Mesylate (Doxazosin Mesylate) 4 Mg Tab, 1 TAB PO DAILY 02/10/25 Lisinopril (Lisinopril) 10 Mg Tab, 1 TAB PO DAILY 02/10/25 Aspirin (Aspirin Low Dose) 81 Mg Tab, 1 TAB PO DAILY 02/10/25 Hctz (Hydrochlorothiazide) 25 Mg Tab, 1 TAB PO DAILY 02/10/25 Information Source: Patient Mode of Arrival: Ambulatory Severity: Moderate Timing: Days Duration: Since onset, Days Prehospital treatment: None Location: Abdomen, Arm, Back, Hand Mechanism: Spontaneous Onset Developed: Rash Object: Unknown Retained Foreign Body: No Wound Type: None Immunization Status of Animal: NA Tetanus: Unknown History of: None Associated Signs and Symptoms: None Past Medical History PAST MEDICAL HISTORY: High Lipids, HTN, IN Surgical History: Hernia Repair, Tonsillectomy Surgical History (Other): AAA, Stent Family History Family History: Reviewed,noncontributory to illness, Unknown Social History Smoker: Non-Smoker Alcohol: Denies ETOH Use Drugs: Denies Drug Use Lives In: Home Constitutional: denies: chills, diaphoresis, fatigue, fever, malaise, sweats, weakness, others EENTM: denies: blurred vision, double vision, ear bleeding, ear discharge, ear drainage, ear pain, ear ringing, eye pain, eye redness, hearing loss, mouth pain, mouth swelling, nasal discharge, nose bleeding, nose congestion, nose pain, photophobia, tearing, throat pain, throat swelling, voice changes, others Respiratory: denies: cough, hemoptysis, orthopnea, SOB at rest, shortness of breath, SOB with excertion, stridor, wheezing, others Cardiovascular: denies: chest pain, dizzy spells, diaphoresis, Dyspnea on e xertion, edema, irregular heart beat, left arm pain, lightheadedness, palpitations, PND, syncope, others Gastrointestinal: denies: abdomen distended, abdominal pain, blood streaked bowels, constipated, diarrhea, dysphagia, difficulty swallowing, hematemesis, melena, nausea, poor appetite, poor fluid intake, rectal bleeding, rectal pain, vomiting, others Genitourinary: denies: burning, dysuria, flank pain, frequency, hematuria, incontinence, penile discharge, penile sore, pain, testicle pain, testicle swelling, urgency, others Neurological: denies: dizziness, fainting, headache, left sided numbness, left sided weakness, numbness, paresthesia, pre-existing deficit, right sided numbness, right sided weakness, seizure, speech problems, tingling, tremors, weakness, others Musculoskeletal: denies: back pain, gout, joint pain, joint swelling, muscle pain, muscle stiffness, neck pain, others Integumetry: reports: rash; denies: bruises, change in color, change in hair/nails, dryness, laceration, lesions, lumps, wounds, others Allergic/Immunocompromised: denies: Difficulty Healing, Frequent Infections, Hives, Itching, others Hematologic/Lymphatic: denies: anemia, blood clots, easy bleeding, easy bruising, swollen glands, others Endocrine: denies: excessive hunger, excessive sweating, excessive thirst, excessive urination, flushing, intolerance to cold, intolerance to heat, unexplained weight gain, unexplained weight loss, others Psychiatric: denies: anxiety, bipolar disorder, depression, hopeless, panic disorder, schizophrenia, sleepless, suicidal, others All Other Systems: Reviewed and Negative Physical Exam General Appearance: No Apparent Distress, Obese HEENT: Normal ENT Inspection, PERRL/EOMI, Pharynx Normal, TMs Normal Neck: Full Range of Motion, Non-Tender, Normal, Normal Inspection Respiratory: Chest Non-Tender, Lungs Clear, No Accessory Muscle Use, No Respiratory Distress, Normal Breath Sounds Cardiovascular: No Edema, No JVD, No Murmur, No Gallop, Normal Peripheral Pulses, Regular Rate/Rhythm Breast Exam: Deferred Gastrointestinal: No Organomegaly, Non Tender, No Pulsatile Mass, Normal Bowel Sounds, Soft, Other (Middle incision noted from aortic aneurysm repair) Genitalia: Deferred Pelvic: Deferred Rectal: Deferred Extremities: No calf tenderness, Normal capillary refill, Normal inspection, Normal range of motion, Non-tender, No pedal edema Musculoskeletal : Apperance: Normal Neurologic: Alert, power bender operator II-XII nml as Tested, No Motor Deficits, Normal Affect, Normal Mood, No Sensory Deficits Cerebellar Function: Normal Reflexes: Normal Skin: Dry, Normal Color, Rash, Warm, Other (Diffuse urticarial skin reaction mostly noted in both arms upper back and legs both hands shows mostly petechiae ) Peripheral Pulses: 1+ carotid (R), 1+ carotid (L) Lymphatic: No Adenopathy Was a procedure done? Was a procedure done?: No Differential Diagnosis (INTG) Differential Diagnosis: N/A Differential Diagnosis: Contact Dermatitis, Drug Reaction, Urticaria, Other (Petechiae) Differential Diagnosis: N/A Abscess: N/A Differential Diagnosis: N/A X-Ray, Labs, Meds, VS Vital Signs Date Time Temp Pulse Resp B/P (MAP) Pulse Ox O2 Delivery O2 Flow Rate FiO2 03/01/25 13:30 82 13 97 Room Air* 0 21 03/01/25 13:30 97.7 82 13 120/60 (80) 97 97.7 03/01/25 11:11 98.1 84 16 119/75 (90) 96 98.1 03/01/25 09:23 98.6 78 12 127/74 (91) 98 98.6 Current Medications Medications (Trade) Dose Ordered Sig/Callie Route Start Time Stop Time Status Last Admin Diphenhydramine HCl (Benadryl Capsule) 50 mg ONCE ONCE PO 03/01/25 11:45 03/01/25 11:46 DC 03/01/25 13:45 Dexamethasone Sodium Phosphate (Decadron Injection) 4 mg ONCE ONCE IM 03/01/25 11:45 03/01/25 11:46 DC 03/01/25 13:45 Pantoprazole Sodium (Protonix Tablet) 40 mg ONCE ONCE PO 03/01/25 11:45 03/01/25 11:46 DC 03/01/25 13:45 X-Ray, Labs, Meds, VS Comment Course in the emergency department patient came in because of the sudden onset of a rash the just finished some antibiotics for diverticulitis Patient received medication refills better and with a discharged home to follow up with his PCP and possibly senior medical technologist Time of 1ST Reevaluation: 11:50 Reevaluation 1ST: Unchanged Time of 2ND Reevaluation: 14:38 Reevaluation 2ND: Improved Consultation: PCP, Other (Dermatology) Patient Education/Counseling: Diagnosis, Treatment, Prognosis, Need For Follow Up Family Education/Counseling: Diagnosis, Treatment, Prognosis, Need For Follow Up, No Family Present Departure 1 Departure Time of Disposition: 14:41 Impression: Primary Impression: Urticaria Disposition: 01 HOME / SELF CARE / HOMELESS Condition: Fair Additional Instructions: Push fluids and follow up with your PCP and also senior medical technologist e-Prescriptions Diphenhydramine Hcl (Benadryl Allergy) 25 Mg Cap 25 MG PO QID for 10 Days, #40 CAP Prov: RACHNA CARRINGTON MD 03/01/25 Omeprazole (Gnp Omeprazole) 20 Mg Tab 20 MG PO BID for 10 Days, #20 TAB Prov: RACHNA CARRINGTON MD 03/01/25 Prednisone (Prednisone) 20 Mg Tab 20 MG PO BID for 5 Days, #10 MG Prov: RACHNA CARRINGTON MD 03/01/25 Discharged With: Self Critical Care Note Critical Care Time?: No Stability Stability form required: No Heart Score Heart Score: Heart Score Response (Comments) Value History N/A 0 EKG N/A 0 Age >65 2 Risk Factors No known risk factors 0 Troponin N/A 0 Total 2 I personally scribed for RACHNA CARRINGTON MD ([email or web address]) on 03/01/25 at 11:47. Electronically submitted by Oseas High ([email or web address]). RACHNA CARRINGTON MD March 01, 2025 11:47
[2025-03-01 13:30] VITALS: BP 120/60; PULSE 82; RESP 13; TEMP 97.7; O2SAT 97
[2025-03-01] MEDS: PANTOPRAZOLE 40 MG TAB PO ONE (13:45)
[2025-03-01] MEDS: DexAMETHasone SOD PHOS 4 MG/1ML SDV INJ IM ONE (13:45)
[2025-03-01] MEDS: diphenhdrAMINE HCL 25 MG CAP PO ONE (13:45)
[2025-03-01] MEDS ORDERED: OMEP20TA PO (14:48)
[2025-03-01] MEDS ORDERED: DIPH25CA66 PO (14:48)
[2025-03-01] MEDS ORDERED: PRED20TA2 PO (14:48)
== END 2025-03-01 15:00 | disposition home or self-care (01) ==
LOC: ER 09:10
DX: L50.9 Urticaria, unspecified (principal); I10 Essential (primary) hypertension; E78.5 Hyperlipidemia, unspecified; I25.2 Old myocardial infarction; Z79.82 Long term (current) use of aspirin; Z79.899 Other long term (current) drug therapy; Z86.79 Personal history of other diseases of the circulatory system; Z90.89 Acquired absence of other organs; Z98.890 Other specified postprocedural states
CPT/HCPCS: 96372; J1100

== ENCOUNTER 2025-03-08 17:34 | Emergency (ER) | payer MEDICARE, MEDICAID ==
[~2025-03-08] VITALS: Ht 180.3 cm; Wt 100.9 kg
[~2025-03-08 17:34] MED LIST changes: +DIPH25CA66 PO; +OMEP20TA PO; +PRED20TA2 PO
[2025-03-08 18:56] VITALS: BP 102/68; PULSE 107; RESP 16; TEMP 97.1; O2SAT 97
--- NOTE | 2025-03-08 19:16 | ED.PDOC ---
History of Present Illness(SKN HPI Comments Year old male presents to the ED chief complaint bilateral hand rash. Patient states over the past 24 hours he has been having hand redness along with dry skin. Also reports currently on prednisone for a rash when he was at the hospital and had stent placement in his groin. He also notes right lower back pain states, "it is my kidney". Reports history of kidney concerns low GFR he states was around 52.. He reports no history of kidney failure he notes that the pain started in the lobby while he was sitting out there waiting to be seen today. Reports no urinary symptoms fevers chills nausea or vomiting. Chief Complaint: Rash Time Seen by MD: 18:33 Primary Care Provider: jeaneth History of Present Illness: Nurses Notes, Medications, Allergies Allergies: Coded Allergies: NO KNOWN ALLERGIES (Unverified , 05/15/20) Home Meds Active Scripts Diphenhydramine Hcl (Benadryl Allergy) 25 Mg Cap, 25 MG PO QID for 10 Days, #40 CAP Prov:RACHNA CARRINGTON MD 03/01/25 Omeprazole (Gnp Omeprazole) 20 Mg Tab, 20 MG PO BID for 10 Days, #20 TAB Prov:RACHNA CARRINGTON MD 03/01/25 Prednisone (Prednisone) 20 Mg Tab, 20 MG PO BID for 5 Days, #10 MG Prov:RACHNA CARRINGTON MD 03/01/25 Metronidazole (Metronidazole) 500 Mg Tab, 500 MG PO TID for 7 Days, #21 TAB Prov:BRAYAN ZAYAS MD 02/13/25 Levofloxacin Hemihydrate (LEVAQUIN 500 MG) 500 Mg Tab, 500 MG PO DAILY for 7 Days, #7 TAB Prov:BRAYAN ZAYAS MD 02/13/25 Reported Medications Ibuprofen Micronized (Ibuprofen) 800 Mg Tab, 800 MG PO Q8HPRN, TAB 02/10/25 Polyethylene Glycol 3350 (Glycolax) 17 Gm/Scoop Pow, 17 GM PO DAILY, POW 02/10/25 Doxazosin Mesylate (Doxazosin Mesylate) 4 Mg Tab, 4 MG PO HS for 30 Days, MG 02/10/25 Atorvastatin Calcium (Lipitor) 80 Mg Tab, 1 TAB PO DAILY, #30 TAB 5 Refills 02/10/25 Doxazosin Mesylate (Doxazosin Mesylate) 4 Mg Tab, 1 TAB PO DAILY 02/10/25 Lisinopril (Lisinopril) 10 Mg Tab, 1 TAB PO DAILY 02/10/25 Aspirin (Aspirin Low Dose) 81 Mg Tab, 1 TAB PO DAILY 02/10/25 Hctz (Hydrochlorothiazide) 25 Mg Tab, 1 TAB PO DAILY 02/10/25 Information Source: Patient Mode of Arrival: Ambulatory Past Medical History PAST MEDICAL HISTORY: High Lipids, HTN, ID Surgical History: Hernia Repair, Tonsillectomy Family History Family History: Reviewed,noncontributory to illness, Unknown Social History Smoker: Non-Smoker Alcohol: Denies ETOH Use Drugs: Denies Drug Use Lives In: Home Constitutional: denies: chills, diaphoresis, fatigue, fever, malaise, sweats, weakness, others EENTM: denies: blurred vision, double vision, ear bleeding, ear discharge, ear drainage, ear pain, ear ringing, eye pain, eye redness, hearing loss, mouth pain, mouth swelling, nasal discharge, nose bleeding, nose congestion, nose pain, photophobia, tearing, throat pain, throat swelling, voice changes, others Respiratory: denies: cough, hemoptysis, orthopnea, SOB at rest, shortness of breath, SOB with excertion, stridor, wheezing, others Cardiovascular: denies: chest pain, dizzy spells, diaphoresis, Dyspnea on exertion, edema, irregular heart beat, left arm pain, lightheadedness, palpitations, PND, syncope, others Gastrointestinal: denies: abdomen distended, abdominal pain, blood streaked bowels, constipated, diarrhea, dysphagia, difficulty swallowing, hematemesis, melena, nausea, poor appetite, poor fluid intake, rectal bleeding, rectal pain, vomiting, others Genitourinary: denies: burning, dysuria, flank pain, frequency, hematuria, incontinence, penile discharge, penile sore, pain, testicle pain, testicle swelling, urgency, others Neurological: denies: dizziness, fainting, headache, left sided numbness, left sided weakness, numbness, paresthesia, pre-existing deficit, right sided numbness, right sided weakness, seizure, speech problems, tingling, tremors, weakness, others Musculoskeletal: denies: back pain, gout, joint pain, joint swelling, muscle pain, muscle stiffness, neck pain, others Integumetry: reports: rash; denies: bruises, change in color, change in hair/nails, dryness, laceration, lesions, lumps, wounds, others Allergic/Immunocompromised: denies: Difficulty Healing, Frequent Infections, Hives, Itching, others Hematologic/Lymphatic: denies: anemia, blood clots, easy bleeding, easy bruising, swollen glands, others Endocrine: denies: excessive hunger, excessive sweating, excessive thirst, excessive urination, flushing, intolerance to cold, intolerance to heat, unexplained weight gain, unexplained weight loss, others Psychiatric: denies: anxiety, bipolar disorder, depression, hopeless, panic disorder, schizophrenia, sleepless, suicidal, others Physical Exam General Appearance: No Apparent Distress, Normal HEENT: Normal ENT Inspection, Pharynx Normal, TMs Normal Neck: Full Range of Motion, Non-Tender, Normal, Normal Inspection Respiratory: Chest Non-Tender, Lungs Clear, No Accessory Muscle Use, No Respiratory Distress, Normal Breath Sounds Cardiovascular: No Edema, No JVD, No Murmur, No Gallop, Normal Peripheral Pulses, Regular Rate/Rhythm Breast Exam: Deferred Gastrointestinal: No Organomegaly, Non Tender, No Pulsatile Mass, Normal Bowel Sounds, Soft, Other (Negative CVA tenderness) Genitalia: Deferred Pelvic: Deferred Rectal: Deferred Extremities: No calf tenderness, Normal capillary refill, Normal inspection, Normal range of motion, Non-tender, No pedal edema Musculoskeletal : Apperance: Normal Neurologic: Alert, spinner hydraulic II-XII nml as Tested, No Motor Deficits, Normal Affect, Normal Mood, No Sensory Deficits Cerebellar Function: Normal Reflexes: Normal Skin: Dry, Normal Color, Rash (Dry peeling rash bilateral hands no noted excoriations or drainage or streaking no open lesions), Warm Lymphatic: No Adenopathy Was a procedure done? Was a procedure done?: No Differential Diagnosis (INTG) Differential Diagnosis: Abrasion, Cellulitis Differential Diagnosis: Abscess, Scabies, Tinea, Urticaria X-Ray, Labs, Meds, VS Vital Signs Date Time Temp Pulse Resp B/P (MAP) Pulse Ox O2 Delivery O2 Flow Rate FiO2 03/08/25 18:56 97.1 107 16 102/68 (79) 97 97.1 Lab Test 03/08/25 19:23 03/08/25 18:06 03/08/25 00:00 Range/Units White Blood Count 13.4 H 4.4-10.8 10^3/uL Red Blood Count 5.16 4.5-5.90 10^6/uL Hemoglobin 15.3 13.5-17.5 g/dL Hematocrit 45.9 41.0-53.0 % Mean Corpuscular Volume 88.9 80.0-100.0 fL Mean Corpuscular Hemoglobin 29.8 28.0-32.0 pg Mean Corpuscular Hemoglobin Concent 33.5 32.0-36.0 g/dL Red Cell Distribution Width 14.0 11.8-14.3 % Platelet Count 211 140-450 10^3/uL Mean Platelet Volume 9.7 6.9-10.8 fL Neutrophils (%) (Auto) 72.1 37.0-80.0 % Lymphocytes (%) (Auto) 17.6 10.0-50.0 % Monocytes (%) (Auto) 9.6 0.0-12.0 % Eosinophils (%) (Auto) 0.6 0.0-7.0 % Basophils (%) (Auto) 0.1 0.0-2.0 % Neutrophils # (Auto) 9.7 H 1.6-8.6 10 ^3/uL Lymphocytes # (Auto) 2.4 0.4-5.4 10 ^3/uL Monocytes # (Auto) 1.3 0-1.3 10 ^3/uL Eosinophils # (Auto) 0.1 0-0.8 10 ^3/uL Basophils # (Auto) 0 0-0.2 10 ^3/uL Nucleated Red Blood Cells 0.1 % Sodium Level 140 136-145 mmol/L Potassium Level 3.5 3.5-5.1 mmol/L Chloride Level 102 98-107 mmol/L Carbon Dioxide Level 30 20-31 mmol/L Anion Gap 8 5-15 Blood Urea Nitrogen 24 H 9-23 mg/dL Creatinine 1.29 0.700-1.30 mg/dL Glomerular Filtration Rate Calc 60 >90 mL/min BUN/Creatinine Ratio 18.6 10.0-20.0 Serum Glucose 110 H 74-106 mg/dL Calcium Level 10.0 8.7-10.4 mg/dL Total Bilirubin 0.7 0.2-1.0 mg/dL Aspartate Amino Transferase (AST) 11 L 13-40 U/L Alanine Aminotransferase (ALT) 19 7-40 U/L Alkaline Phosphatase 83 46-116 U/L Total Protein 7.1 5.7-8.2 g/dL Albumin 4.3 3.2-4.8 g/dL POC Glucose 109 H 70-106 mg/dl Urine Color Yellow Yellow Urine Clarity Clear Clear Urine pH 5.5 5.0-9.0 Urine Specific Wallace 1.018 1.001-1.035 Urine Protein Negative Negative Urine Ketones Negative Negative Urine Blood Negative Negative /uL Urine Nitrite Negative Negative Urine Bilirubin Negative Negative Urine Urobilinogen Normal Negative mg/dL Urine Leukocyte Esterase Negative Negative /uL Urine RBC 1 0 - 3 /hpf Urine Microscopic WBC 1 0-3 /HPF Urine Squamous Epithelial Cells Few <5 /hpf Urine Bacteria None seen None Seen /hpf Urine Mucus Few None Seen Urine Glucose Normal Normal mg/dL X-Ray, Labs, Meds, VS Comment CBC SLIGHT BUMP IN WBCS SLIGHT LEUKOCYTOSIS ADVISED PATIENT TO FOLLOW UP HIS PCP IN 2-3 DAYS HAVE A REPEAT CBC. PATIENT CURRENTLY ON PREDNISONE DUE TO RASH ADVISED HIM TO CONTINUE PRESCRIBED FOLLOW UP WITH HIS PCP AGAIN IN 2 DAYS. ER RETURN PRECAUTIONS GIVEN PATIENT INDICATES [facility]ERSTAND[facility] Time of 1ST Reevaluation: 19:13 Reevaluation 1ST: Unchanged Time of 2ND Reevaluation: 21:01 Reevaluation 2ND: Improved Patient Education/Counseling: Diagnosis, Treatment, Prognosis, Need For Follow Up Family Education/Counseling: No Family Present Departure 1 Departure Time of Disposition: 21:01 Impression: Primary Impression: Rash and nonspecific skin eruption Disposition: 01 HOME / SELF CARE / HOMELESS Condition: Stable Discharged With: Relative (Sibling) Critical Care Note Critical Care Time?: No Stability Stability form required: JULY Camacho Mar 08, 2025 19:16
[2025-03-08 19:21] LABS: Urine Bacteria None Seen /hpf (None Seen)
[2025-03-08 19:26] LABS: Urine Blood Negative /uL (Negative); Urine Clarity Clear (Clear); Urine Color Yellow (Yellow); Urine Mucus FEW (None Seen); Urine Protein, UAD Negative (Negative); Urine Specific Gravity 1.018 (1.001-1.035); Urine Squamous Epithelial Cell FEW /hpf (<5); Urine Urobilinogen Normal (Negative); Urine WBC 1 /HPF (0-3); Urine pH 5.5 (5.0-9.0)
[2025-03-08 19:55] LABS: Basophils # (auto) 0 10 ^3/uL (0-0.2); Basophils % (auto) 0.1 % (0.0-2.0); Eosinophils # (auto) 0.1 10 ^3/uL (0-0.8); Eosinophils % (auto) 0.6 % (0.0-7.0); Hematocrit 45.9 % (41.0-53.0); Hemoglobin 15.3 g/dL (13.5-17.5); Lymphocytes # (auto) 2.4 10 ^3/uL (0.4-5.4); Lymphocytes % (auto) 17.6 % (10.0-50.0); Mean Corpuscular Hemoglobin 29.8 pg (28.0-32.0); Mean Corpuscular Hgb Conc. 33.5 g/dL (32.0-36.0); Mean Corpuscular Volume 88.9 fL (80.0-100.0); Monocytes # (auto) 1.3 10 ^3/uL (0-1.3); Monocytes % (auto) 9.6 % (0.0-12.0); Neutrophils # (auto) 9.7 10 ^3/uL (1.6-8.6); Neutrophils % (auto) 72.1 % (37.0-80.0); Nucleated Red Blood Cells % 0.1 %; Platelet Count (auto) 211 10^3/uL (140-450); Red Blood Cells 5.16 10^6/uL (4.5-5.90); White Blood Cell 13.4 10^3/uL (4.4-10.8)
[2025-03-08 20:09] LABS: Alanine Aminotransferase 19 U/L (7-40); Albumin 4.3 g/dL (3.2-4.8); Alkaline Phosphatase 83 U/L (46-116); Anion Gap 8 (5-15); Aspartate Aminotransferase 11 U/L (13-40); BUN/Creatinine Ratio 18.6 (10.0-20.0); Bilirubin, Total 0.7 mg/dL (0.2-1.0); Blood Urea Nitrogen 24 mg/dL (9-23); Carbon Dioxide 30 mmol/L (20-31); Chloride 102 mmol/L (98-107); Glucose 110 mg/dL (74-106); Potassium 3.5 mmol/L (3.5-5.1); Sodium 140 mmol/L (136-145); Total Protein 7.1 g/dL (5.7-8.2)
== END 2025-03-08 21:19 | disposition home or self-care (01) ==
LOC: ER 17:34
DX: R21 Rash and other nonspecific skin eruption (principal); I10 Essential (primary) hypertension; E78.5 Hyperlipidemia, unspecified; I21.9 Acute myocardial infarction, unspecified; Z79.899 Other long term (current) drug therapy; Z90.89 Acquired absence of other organs; Z98.890 Other specified postprocedural states; Z79.82 Long term (current) use of aspirin; Z79.52 Long term (current) use of systemic steroids
CPT/HCPCS: 36415; 80053; 81001; 82947; 82962; 85025

== ENCOUNTER 2025-05-03 08:01 | Inpatient (IN) | payer MEDICARE, MEDICAID ==
[~2025-05-03] VITALS: Ht 180.3 cm; Wt 107.0 kg
[2025-05-03] MEDS: PANTOPRAZOLE 40 MG TAB PO SCH (00:20)
[2025-05-03] MEDS: SODIUM CHLOR 0.9% PF (SALINE LOCK) 10ML VIAL/SYR IV SCH (00:20)
[2025-05-03] MEDS: SODIUM CHLORIDE 0.9% 1,000 ML IV ONE ×3 (00:20→18:08)
--- NOTE | 2025-05-03 08:40 | ED.PDOC ---
HPI Comments This is a 69 year old male SHARONA presenting to the ED with chief complaint of chest pain. Patient reports that he has been experiencing left sided chest pressure with associated SOB and lightheadedness since this morning. Patient relays that prior to EMS arrival he took a dose of ASA. Patient notes history of AAA and TX. Patient denies any dizziness, headache, syncope, N/V, or abdominal pain. Chief Complaint: Chest Pain Time Seen by MD: 08:38 Primary Care Provider: jeaneth Reviewed Notes: Nurses Notes, Ui Developer Notes, Medications, Allergies Allergies: Coded Allergies: NO KNOWN ALLERGIES (Unverified , 05/15/20) Home Meds Active Scripts Diphenhydramine Hcl (Benadryl Allergy) 25 Mg Cap, 25 MG PO QID for 10 Days, #40 CAP Prov:RACHNA CARRINGTON MD 03/01/25 Omeprazole (Gnp Omeprazole) 20 Mg Tab, 20 MG PO BID for 10 Days, #20 TAB Prov:RACHNA CARRINGTON MD 03/01/25 Prednisone (Prednisone) 20 Mg Tab, 20 MG PO BID for 5 Days, #10 MG Prov:RACHNA CARRINGTON MD 03/01/25 Metronidazole (Metronidazole) 500 Mg Tab, 500 MG PO TID for 7 Days, #21 TAB Prov:BRAYAN ZAYAS MD 02/13/25 Levofloxacin Hemihydrate (LEVAQUIN 500 MG) 500 Mg Tab, 500 MG PO DAILY for 7 Days, #7 TAB Prov:BRAYAN ZAYAS MD 02/13/25 Reported Medications Ibuprofen Micronized (Ibuprofen) 800 Mg Tab, 800 MG PO Q8HPRN, TAB 02/10/25 Polyethylene Glycol 3350 (Glycolax) 17 Gm/Scoop Pow, 17 GM PO DAILY, POW 02/10/25 Doxazosin Mesylate (Doxazosin Mesylate) 4 Mg Tab, 4 MG PO HS for 30 Days, MG 02/10/25 Atorvastatin Calcium (Lipitor) 80 Mg Tab, 1 TAB PO DAILY, #30 TAB 5 Refills 02/10/25 Doxazosin Mesylate (Doxazosin Mesylate) 4 Mg Tab, 1 TAB PO DAILY 02/10/25 Lisinopril (Lisinopril) 10 Mg Tab, 1 TAB PO DAILY 02/10/25 Aspirin (Aspirin Low Dose) 81 Mg Tab, 1 TAB PO DAILY 02/10/25 Hctz (Hydrochlorothiazide) 25 Mg Tab, 1 TAB PO DAILY 02/10/25 Information Source: Patient, Emergency Med Personnel Mode of Arrival: EMS Severity: Moderate Timing: Hours Duration: Since onset Prehospital treatment: None Location: Chest (L) Quality: Pressure Onset: At Rest Cardiac Risk Factors: Hyperlipidemia, HTN History of: Similar pain in past, TX, Aortic Disease Associated Signs and Symptoms: SOB Past Medical History PAST MEDICAL HISTORY: High Lipids, HTN, TX Past Medical History (Other): AAA Surgical History: Hernia Repair, Tonsillectomy Surgical History (Other): Aortic stent Family History Family History: Reviewed,noncontributory to illness, Unknown Social History Smoker: Non-Smoker Alcohol: Denies ETOH Use Drugs: Denies Drug Use Lives In: Home Constitutional: denies: chills, diaphoresis, fatigue, fever, malaise, sweats, weakness, others EENTM: denies: blurred vision, double vision, ear bleeding, ear discharge, ear drainage, ear pain, ear ringing, eye pain, eye redness, hearing loss, mouth pain, mouth swelling, nasal discharge, nose bleeding, nose congestion, nose pain, photophobia, tearing, throat pain, throat swelling, voice changes, others Respiratory: reports: shortness of breath; denies: cough, hemoptysis, orthopnea, SOB at rest, SOB with excertion, stridor, wheezing, others Cardiovascular: reports: chest pain, lightheadedness; denies: dizzy spells, diaphoresis, Dyspnea on exertion, edema, irregular heart beat, left arm pain, palpitations, PND, syncope, others Gastrointestinal: denies: abdomen distended, abdominal pain, blood streaked bowels, constipated, diarrhea, dysphagia, difficulty swallowing, hematemesis, melena, nausea, poor appetite, poor fluid intake, rectal bleeding, rectal pain, vomiting, others Genitourinary: denies: burning, dysuria, flank pain, frequency, hematuria, incontinence, penile discharge, penile sore, pain, testicle pain, testicle swelling, urgency, others Neurological: denies: dizziness, fainting, headache, left sided numbness, left sided weakness, numbness, paresthesia, pre-existing deficit, right sided numbness, right sided weakness, seizure, speech problems, tingling, tremors, weakness, others Musculoskeletal: denies: back pain, gout, joint pain, joint swelling, muscle pain, muscle stiffness, neck pain, others Integumetry: denies: bruises, change in color, change in hair/nails, dryness, laceration, lesions, lumps, rash, wounds, others Allergic/Immunocompromised: denies: Difficulty Healing, Frequent Infections, Hives, Itching, others Hematologic/Lymphatic: denies: anemia, blood clots, easy bleeding, easy bruising, swollen glands, others Endocrine: denies: excessive hunger, excessive sweating, excessive thirst, excessive urination, flushing, intolerance to cold, intolerance to heat, unexplained weight gain, unexplained weight loss, others Psychiatric: denies: anxiety, bipolar disorder, depression, hopeless, panic disorder, schizophrenia, sleepless, suicidal, others All Other Systems: Reviewed and Negative Physical Exam General Appearance: Moderate Distress, Normal HEENT: Normal ENT Inspection, Pharynx Normal, TMs Normal Neck: Full Range of Motion, Non-Tender, Normal, Normal Inspection Respiratory: Chest Non-Tender, Lungs Clear, No Accessory Muscle Use, No Respiratory Distress, Normal Breath Sounds Cardiovascular: No Edema, No JVD, No Murmur, No Gallop, Normal Peripheral Pulses, Regular Rate/Rhythm Breast Exam: Deferred Gastrointestinal: No Organomegaly, Non Tender, No Pulsatile Mass, Normal Bowel Sounds, Soft Genitalia: Deferred Pelvic: Deferred Rectal: Deferred Extremities: No calf tenderness, Normal capillary refill, Normal inspection, Normal range of motion, Non-tender, No pedal edema Musculoskeletal : Apperance: Normal Neurologic: Alert, merchandise pickup/receiving associate II-XII nml as Tested, No Motor Deficits, Normal Affect, Normal Mood, No Sensory Deficits Cerebellar Function: NOT DONE Reflexes: NOT DONE Skin: Dry, Normal Color, Warm Peripheral Pulses: 3+ Radial (R), 3+ Radial (L) Lymphatic: No Adenopathy EKG EKG : Pulse Rate (adult): 68 [place]: Normal Cardiac Rhythm: NSR Block: None Hypertrophy: None ST: Normal Was a procedure done? Was a procedure done?: No CP Differential Dx Differential Diagnosis: A-fib, A-Flutter, Angina, Anxiety / Panic Attack, Atrial Dysrhythmia, Electrolyte Disorder X-Ray, Labs, Meds, VS Vital Signs Date Time Temp Pulse Resp B/P (MAP) Pulse Ox O2 Delivery O2 Flow Rate FiO2 05/03/25 10:31 77 20 97 Room Air* 0 21 05/03/25 10:25 91/61 05/03/25 10:24 77 18 91/61 05/03/25 10:23 97.1 77 18 91/61 (71) 96 97.1 05/03/25 10:23 77 18 96 Room Air 05/03/25 09:17 84 05/03/25 08:40 68 05/03/25 08:17 98.0 60 16 119/65 98 98.0 05/03/25 08:06 68 Lab Test 05/03/25 09:39 05/03/25 08:38 Range/Units Troponin I High Sensitivity 3 L 3 L </=54 ng/L White Blood Count 7.7 4.4-10.8 10^3/uL Red Blood Count 4.67 4.5-5.90 10^6/uL Hemoglobin 14.2 13.5-17.5 g/dL Hematocrit 41.7 41.0-53.0 % Mean Corpuscular Volume 89.2 80.0-100.0 fL Mean Corpuscular Hemoglobin 30.3 28.0-32.0 pg Mean Corpuscular Hemoglobin Concent 34.0 32.0-36.0 g/dL Red Cell Distribution Width 15.0 H 11.8-14.3 % Platelet Count 176 140-450 10^3/uL Mean Platelet Volume 9.3 6.9-10.8 fL Neutrophils (%) (Auto) 69.4 37.0-80.0 % Lymphocytes (%) (Auto) 18.2 10.0-50.0 % Monocytes (%) (Auto) 8.4 0.0-12.0 % Eosinophils (%) (Auto) 3.7 0.0-7.0 % Basophils (%) (Auto) 0.3 0.0-2.0 % Neutrophils # (Auto) 5.3 1.6-8.6 10 ^3/uL Lymphocytes # (Auto) 1.4 0.4-5.4 10 ^3/uL Monocytes # (Auto) 0.6 0-1.3 10 ^3/uL Eosinophils # (Auto) 0.3 0-0.8 10 ^3/uL Basophils # (Auto) 0 0-0.2 10 ^3/uL Nucleated Red Blood Cells 0.1 % Sodium Level 137 136-145 mmol/L Potassium Level 3.8 3.5-5.1 mmol/L Chloride Level 103 98-107 mmol/L Carbon Dioxide Level 25 20-31 mmol/L Anion Gap 9 5-15 Blood Urea Nitrogen 23 9-23 mg/dL Creatinine 1.12 0.700-1.30 mg/dL Glomerular Filtration Rate Calc 71 >90 mL/min BUN/Creatinine Ratio 20.5 H 10.0-20.0 Serum Glucose 105 74-106 mg/dL Calcium Level 10.2 8.7-10.4 mg/dL Current Medications Medications (Trade) Dose Ordered Sig/Callie Route Start Time Stop Time Status Last Admin Morphine Sulfate 2 mg ONCE ONCE IV 05/03/25 08:45 05/03/25 08:46 DC 05/03/25 10:24 Ondansetron HCl (Zofran) 4 mg ONCE ONCE IV 05/03/25 08:45 05/03/25 08:46 DC 05/03/25 10:23 Patient alert. Complaining of chest pain. Vitals stable. Answering questions. Was given morphine. Was given Zofran. Was given nitro. EKG reviewed does not show any acute changes. Continues to have chest discomfort. Explained to the patient. Was told to follow up with his primary care physician. Was told to come back if there is any problem. Time of 1ST Reevaluation: 09:38 Reevaluation 1ST: Unchanged Patient Education/Counseling: Diagnosis, Treatment Family Education/Counseling: No Family Present SEPSIS Sepsis Screen Date sepsis recognized/suspect: May 03, 2025 Time Sepsis recognized/suspect: 804 Recent Procedure: No On Antibiotic Therapy: No Respiratory Rate >20: No Heart Rate >90: No Temp<36 C (96.8 F) or >38.3 C: No SBP <90 or MAP <65 mmHG: No New Acute Mental Status Change: No Is the patient on CPAP, BIPAP,: No Physician Orders Electrocardigram (05/03/25 08:17) Electrocardigram (05/03/25 09:17) Electrocardigram (05/03/25 11:17) Vital Signs Date Time Temp Pulse Resp B/P (MAP) Pulse Ox O2 Delivery O2 Flow Rate FiO2 05/03/25 10:31 77 20 97 Room Air* 0 21 05/03/25 10:25 91/61 05/03/25 10:24 77 18 91/61 05/03/25 10:23 97.1 77 18 91/61 (71) 96 97.1 05/03/25 10:23 77 18 96 Room Air 05/03/25 09:17 84 05/03/25 08:40 68 05/03/25 08:17 98.0 60 16 119/65 98 98.0 05/03/25 08:06 68 Laboratory Tests Test 05/03/25 08:38 White Blood Count 7.7 10^3/uL (4.4-10.8) Medications Medications Dose Ordered Sig/Callie Route Start Time Stop Time Status Last Admin Dose Admin Morphine Sulfate 2 mg ONCE ONCE IV 05/03/25 08:45 05/03/25 08:46 DC 05/03/25 10:24 Ondansetron HCl 4 mg ONCE ONCE IV 05/03/25 08:45 05/03/25 08:46 DC 05/03/25 10:23 Departure 1 Departure Time of Disposition: 10:47 Impression: Primary Impression: Chest pain of unknown etiology Disposition: ADMITTED INPATIENT Admit to: Med Surg Condition: Guarded Critical Care Note Critical Care Time?: No Stability Stability form required: No Heart Score Heart Score: Heart Score Response (Comments) Value History Highly Suspicious 2 EKG Normal 0 Age >65 2 Risk Factors >3 or Hx ASHD 2 Troponin Normal limit 0 Total 6 I personally scribed for JF BOWMAN MD ([email or web address]) on 05/03/25 at 08:40. Electronically submitted by Nacho Means ([email or web address]). JF BOWMAN MD May 03, 2025 08:40
[2025-05-03 09:19] LABS: Chloride 103 mmol/L (98-107); Potassium 3.8 mmol/L (3.5-5.1); Sodium 137 mmol/L (136-145)
[2025-05-03 09:20] LABS: Anion Gap 9 (5-15); Calcium 10.2 mg/dL (8.7-10.4); Carbon Dioxide 25 mmol/L (20-31)
[2025-05-03 09:25] LABS: BUN/Creatinine Ratio 20.5 (10.0-20.0); Glucose 105 mg/dL (74-106); Hematocrit 41.7 % (41.0-53.0); Hemoglobin 14.2 g/dL (13.5-17.5); Mean Corpuscular Hemoglobin 30.3 pg (28.0-32.0); Mean Corpuscular Volume 89.2 fL (80.0-100.0); Nucleated Red Blood Cells % 0.1 %
[2025-05-03 09:28] LABS: Blood Urea Nitrogen 23 mg/dL (9-23)
[2025-05-03] MEDS: ONDANSETRON HCL 4 MG/2 ML VIAL IV ONE (10:23)
[2025-05-03] MEDS: MORPHINE SULFATE INJ 2 MG/ml SYRG IV ONE (10:24)
[2025-05-03] MEDS: NITROGLYCERIN 0.4 MG SL TAB SL ONE (10:25)
[2025-05-03 10:31] VITALS: PULSE 77; RESP 20; O2SAT 97
--- NOTE | 2025-05-03 20:05 | DVHHP2 ---
Admitting Diagnosis: Chest pain rule out ACS History of Present Illness This is a 69 year old male SHARONA presenting to the ED with chief complaint of chest pain. Patient reports that he has been experiencing left sided chest pressure with associated SOB and lightheadedness since this morning. Patient relays that prior to EMS arrival he took a dose of ASA. Patient notes history of AAA and [place]. Patient denies any dizziness, headache, syncope, N/V, or abdominal pain. PAST MEDICAL HISTORY: High Lipids, HTN, [place] Past Medical History (Other): AAA Surgical History: Hernia Repair, Tonsillectomy Surgical History (Other): Aortic stent Family History Family History: Reviewed,noncontributory to illness, Unknown Social History Smoker: Non-Smoker Alcohol: Denies ETOH Use Drugs: Denies Drug Use Lives In: Home Patient Family History: FH: cancer G8 MOTHER G8 FATHER Parents Allergies: Coded Allergies: NO KNOWN ALLERGIES (Unverified , 05/15/20) Home Meds Active Scripts Diphenhydramine Hcl (Benadryl Allergy) 25 Mg Cap, 25 MG PO QID for 10 Days, #40 CAP Prov:RACHNA CARRINGTON MD 03/01/25 Omeprazole (Gnp Omeprazole) 20 Mg Tab, 20 MG PO BID for 10 Days, #20 TAB Prov:RACHNA CARRINGTON MD 03/01/25 Prednisone (Prednisone) 20 Mg Tab, 20 MG PO BID for 5 Days, #10 MG Prov:RACHNA CARRINGTON MD 03/01/25 Metronidazole (Metronidazole) 500 Mg Tab, 500 MG PO TID for 7 Days, #21 TAB Prov:BRAYAN ZAYAS MD 02/13/25 Levofloxacin Hemihydrate (LEVAQUIN 500 MG) 500 Mg Tab, 500 MG PO DAILY for 7 Days, #7 TAB Prov:BRAYAN ZAYAS MD 02/13/25 Reported Medications Ibuprofen Micronized (Ibuprofen) 800 Mg Tab, 800 MG PO Q8HPRN, TAB 02/10/25 Polyethylene Glycol 3350 (Glycolax) 17 Gm/Scoop Pow, 17 GM PO DAILY, POW 02/10/25 Doxazosin Mesylate (Doxazosin Mesylate) 4 Mg Tab, 4 MG PO HS for 30 Days, MG 02/10/25 Atorvastatin Calcium (Lipitor) 80 Mg Tab, 1 TAB PO DAILY, #30 TAB 5 Refills 02/10/25 Doxazosin Mesylate (Doxazosin Mesylate) 4 Mg Tab, 1 TAB PO DAILY 02/10/25 Lisinopril (Lisinopril) 10 Mg Tab, 1 TAB PO DAILY 02/10/25 Aspirin (Aspirin Low Dose) 81 Mg Tab, 1 TAB PO DAILY 02/10/25 Hctz (Hydrochlorothiazide) 25 Mg Tab, 1 TAB PO DAILY 02/10/25 Vital Signs Vital Signs Date Time Temp Pulse Resp B/P (MAP) Pulse Ox O2 Delivery O2 Flow Rate FiO2 05/03/25 16:50 68 19 88/49 (62) 95 05/03/25 10:31 Room Air* 0 21 05/03/25 10:23 97.1 97.1 Physical Exam 69 years old male, well nourished well developed. No apparent distress HEENT-atraumatic, normocephalic Heart-regular rate and rhythm Lungs clear to auscultate Abdomen soft nontender nondistended Musculoskeletal-no edema cyanosis Neuro-AO x3, no focal deficits SEPSIS Sepsis Screen Date sepsis recognized/suspect: May 03, 2025 Time Sepsis recognized/suspect: 804 Recent Procedure: No On Antibiotic Therapy: No Respiratory Rate >20: No Heart Rate >90: No Temp<36 C (96.8 F) or >38.3 C: No SBP <90 or MAP <65 mmHG: No New Acute Mental Status Change: No Is the patient on CPAP, BIPAP,: No Physician Orders Electrocardigram (05/03/25 08:17) Electrocardigram (05/03/25 09:17) Electrocardigram (05/03/25 11:17) Cardiac Diet-2gna,Lofat,Lochol (05/03/25 Dinner) Vital Signs Date Time Temp Pulse Resp B/P (MAP) Pulse Ox O2 Delivery O2 Flow Rate FiO2 05/03/25 16:50 68 19 88/49 (62) 95 05/03/25 15:15 62 17 102/57 (72) 98 05/03/25 14:07 74 16 86/51 (63) 95 05/03/25 11:03 79 15 98/50 05/03/25 10:31 77 20 97 Room Air* 0 21 05/03/25 10:25 91/61 05/03/25 10:24 77 18 91/61 05/03/25 10:23 97.1 77 18 91/61 (71) 96 97.1 05/03/25 10:23 77 18 96 Room Air 05/03/25 09:17 84 05/03/25 08:40 68 05/03/25 08:17 98.0 60 16 119/65 98 98.0 05/03/25 08:06 68 Laboratory Tests Test 05/03/25 08:38 White Blood Count 7.7 10^3/uL (4.4-10.8) Medications Medications Dose Ordered Sig/Callie Route Start Time Stop Time Status Last Admin Dose Admin Sodium Chloride 1,000 ml @ 1,000 mls/hr Q1H ONCE IV 05/03/25 14:30 05/03/25 15:29 DC 05/03/25 14:23 Sodium Chloride 1,000 ml @ 1,000 mls/hr Q1H ONCE IV 05/03/25 17:15 05/03/25 18:14 DC 05/03/25 18:08 Results Labs Test 05/03/25 09:39 05/03/25 08:38 Range/Units Troponin I High Sensitivity 3 L </=54 ng/L White Blood Count 7.7 4.4-10.8 10^3/uL Red Blood Count 4.67 4.5-5.90 10^6/uL Hemoglobin 14.2 13.5-17.5 g/dL Hematocrit 41.7 41.0-53.0 % Mean Corpuscular Volume 89.2 80.0-100.0 fL Mean Corpuscular Hemoglobin 30.3 28.0-32.0 pg Mean Corpuscular Hemoglobin Concent 34.0 32.0-36.0 g/dL Red Cell Distribution Width 15.0 H 11.8-14.3 % Platelet Count 176 140-450 10^3/uL Mean Platelet Volume 9.3 6.9-10.8 fL Neutrophils (%) (Auto) 69.4 37.0-80.0 % Lymphocytes (%) (Auto) 18.2 10.0-50.0 % Monocytes (%) (Auto) 8.4 0.0-12.0 % Eosinophils (%) (Auto) 3.7 0.0-7.0 % Basophils (%) (Auto) 0.3 0.0-2.0 % Neutrophils # (Auto) 5.3 1.6-8.6 10 ^3/uL Lymphocytes # (Auto) 1.4 0.4-5.4 10 ^3/uL Monocytes # (Auto) 0.6 0-1.3 10 ^3/uL Eosinophils # (Auto) 0.3 0-0.8 10 ^3/uL Basophils # (Auto) 0 0-0.2 10 ^3/uL Nucleated Red Blood Cells 0.1 % Sodium Level 137 136-145 mmol/L Potassium Level 3.8 3.5-5.1 mmol/L Chloride Level 103 98-107 mmol/L Carbon Dioxide Level 25 20-31 mmol/L Anion Gap 9 5-15 Blood Urea Nitrogen 23 9-23 mg/dL Creatinine 1.12 0.700-1.30 mg/dL Glomerular Filtration Rate Calc 71 >90 mL/min BUN/Creatinine Ratio 20.5 H 10.0-20.0 Serum Glucose 105 74-106 mg/dL Calcium Level 10.2 8.7-10.4 mg/dL Primary Diagnosis Hypotensive Chest pain rule out ACS Plan Patient's blood pressure normally 110s to 120s. Patient currently BP low currently no chest pain Check echo of the heart IV fluids Hold antihypertensive trop neg Lovenox for DVT prophylaxis No GI prophylaxis needed Full code Plan discussed with: Patient Problems List: (1) Chest pain of unknown etiology Status: Acute Date of Service: May 03, 2025 Billing Provider: JACKIE UMANA MD Common Visit Codes: [id number] INP/OBS CARE (MOD) JACKIE UMANA MD May 03, 2025 20:04
[2025-05-03] MEDS ORDERED: DOCUSATE SOD 100 MG CAP PO PRN (21:15)
[2025-05-03] MEDS ORDERED: ACETAMINOPHEN 325 MG TAB PO PRN (21:15)
[2025-05-03] MEDS ORDERED: NITROGLYCERIN 0.4 MG SL TAB SL PRN (21:15)
[2025-05-03] MEDS ORDERED: ONDANSETRON HCL 4 MG/2 ML VIAL IV PRN (21:15)
[2025-05-03] MEDS ORDERED: MORPHINE SULFATE INJ 2 MG/ml SYRG IV PRN (21:15)
[2025-05-04] VITALS (7 sets, daily range): BP systolic 107–130; BP diastolic 53–73; PULSE 64–82; RESP 17–20; TEMP 97–98.8; O2SAT 97–99
[2025-05-04] MEDS: ENOXAPARIN SOD 40 MG/0.4 ML SYRINGE SC SCH (10:04)
[2025-05-04] MEDS: ATORVASTATIN 20 MG TAB PO SCH (10:04)
--- NOTE | 2025-05-04 15:22 | DVHPN2 ---
[facility] Patient's chart is reviewed and discussed with the nurse and patient at bedside regarding care plan. Clinically feeling better. Chest discomfort has improved. Blood pressure is improved and no complaints of dizziness or lightheadedness. Changes from previous H/P or p: No Changes Objective Vitals Vital Signs Date Time Temp Pulse Resp B/P (MAP) Pulse Ox O2 Delivery O2 Flow Rate FiO2 05/04/25 08:46 97.0 66 18 110/60 (77) 99 97.0 05/03/25 10:31 Room Air* 0 21 Intake/Output Intake and Output 05/04/25 07:00 Intake Total 1000 ml Balance 1000 ml Intake IV Total 1000 ml Exam Alert awake oriented x3. Pain-free. HEENT neck supple no JVD. Pupils equal round react to light. Heart regular rate and rhythm S1-S2 no murmurs. Lungs fair air movement chest tube will expansion no rales wheezes. Abdomen soft nontender positive bowel sounds. Extremities no edema positive distal pedal pulses. Neurologically no focal deficits Medications Current Medications Medications Dose Ordered Sig/Callie Route Start Time Stop Time Status Last Admin Dose Admin Sodium Chloride 10 ml Q8HR IV 05/03/25 22:00 05/03/25 00:20 10 ML Docusate Sodium 100 mg BIDPRN PRN PO 05/03/25 21:15 Acetaminophen 650 mg Q6HP PRN PO 05/03/25 21:15 Ondansetron HCl 4 mg Q4HP PRN IV 05/03/25 21:15 Enoxaparin Sodium 40 mg DAILY SC 05/04/25 10:00 05/04/25 10:04 40 MG Nitroglycerin 0.4 mg Q5MINP PRN SL 05/03/25 21:15 Morphine Sulfate 2 mg Q30M PRN IV 05/03/25 21:15 Aspirin 81 mg DAILY PO 05/04/25 10:00 Atorvastatin Calcium 80 mg DAILY PO 05/04/25 10:00 05/04/25 10:04 80 MG Pantoprazole Sodium 40 mg BID PO 05/03/25 22:00 05/04/25 10:04 40 MG Laboratory Results Laboratory Tests 05/03/25 08:38 Assessment/Plan Assessment/Plan His symptoms possibly related to hypotension. Blood pressure medications have been held and adjusted. Received IV fluids. Blood pressure is normalized. We will wait for echocardiogram results and cardiac evaluation. Repeat troponin in the morning. If his workup is unremarkable and patient continued to feel well with a normal blood pressure then he can be discharged home. Meantime we will also check orthostatic blood pressure. Discussed with the patient and nurse regarding care plan. Plan discussed with: Patient, Other My Orders Orders - ELIZABETH DÍAZ MD Procedure Category Date Status Time * Cardiology Consult CONS 05/04/25 Verified 15:18 Orthostatic Vital ORDERS 05/04/25 Verified Signs 15:18 Troponin-I Hs LAB 05/05/25 Verified 04:00 Troponin-I Hs LAB 05/04/25 Verified 18:18 Electrocardigram EKG 05/05/25 Verified 04:00 Problem List: (1) Hypertension, well controlled (2) Chest pain of unknown etiology (3) Hypotension Date of Service: May 04, 2025 Billing Provider: ELIZABETH DÍAZ MD Common Visit Codes: [id number] INP/OBS CARE(MOD) ELIZABETH DÍAZ MD May 04, 2025 15:22
[2025-05-04] MEDS: ASPirin-EC 81 mg tab PO SCH (17:36)
--- NOTE | 2025-05-05 00:03 | DVHINCON2 ---
Date of service: May 04, 2025 Referring Physician Joann Reason for Consultation Chest pain History of Present Illness This is a 69 year old male with a PMH of AAA and [place] who was brought in by EMS due to complaints of chest pain. Patient reports that he has been experiencing left sided chest pressure with associated SOB and lightheadedness since this morning. Patient relays that prior to EMS arrival he took a dose of ASA. Troponin is negative x3. EKG is NSR at 68. Patient was admitted to the hospital. I am asked to consult on this patient. Family History: FH: cancer G8 MOTHER G8 FATHER Parents Allergies: Coded Allergies: NO KNOWN ALLERGIES (Unverified , 05/15/20) Home Meds Active Scripts Diphenhydramine Hcl (Benadryl Allergy) 25 Mg Cap, 25 MG PO QID for 10 Days, #40 CAP Prov:RACHNA CARRINGTON MD 03/01/25 Omeprazole (Gnp Omeprazole) 20 Mg Tab, 20 MG PO BID for 10 Days, #20 TAB Prov:RACHNA CARRINGTON MD 03/01/25 Prednisone (Prednisone) 20 Mg Tab, 20 MG PO BID for 5 Days, #10 MG Prov:RACHNA CARRINGTON MD 03/01/25 Metronidazole (Metronidazole) 500 Mg Tab, 500 MG PO TID for 7 Days, #21 TAB Prov:BRAYAN ZAYAS MD 02/13/25 Levofloxacin Hemihydrate (LEVAQUIN 500 MG) 500 Mg Tab, 500 MG PO DAILY for 7 Days, #7 TAB Prov:BRAYAN ZAYAS MD 02/13/25 Reported Medications Ibuprofen Micronized (Ibuprofen) 800 Mg Tab, 800 MG PO Q8HPRN, TAB 02/10/25 Polyethylene Glycol 3350 (Glycolax) 17 Gm/Scoop Pow, 17 GM PO DAILY, POW 02/10/25 Doxazosin Mesylate (Doxazosin Mesylate) 4 Mg Tab, 4 MG PO HS for 30 Days, MG 02/10/25 Atorvastatin Calcium (Lipitor) 80 Mg Tab, 1 TAB PO DAILY, #30 TAB 5 Refills 02/10/25 Doxazosin Mesylate (Doxazosin Mesylate) 4 Mg Tab, 1 TAB PO DAILY 02/10/25 Lisinopril (Lisinopril) 10 Mg Tab, 1 TAB PO DAILY 02/10/25 Aspirin (Aspirin Low Dose) 81 Mg Tab, 1 TAB PO DAILY 02/10/25 Hctz (Hydrochlorothiazide) 25 Mg Tab, 1 TAB PO DAILY 02/10/25 Current Medications Current Medications Medications (Trade) Dose Ordered Sig/Callie Route PRN Reason Start Time Stop Time Status Last Admin Enoxaparin Sodium (Lovenox) 40 mg DAILY SC 05/04/25 10:00 05/04/25 10:04 Aspirin (Ecotrin Enteric Coated Tablet) 81 mg DAILY PO 05/04/25 10:00 05/04/25 17:36 Atorvastatin Calcium (Lipitor) 80 mg DAILY PO 05/04/25 10:00 05/04/25 10:04 Review of Systems Constitutional: denies: chills, diaphoresis, fatigue, fever, malaise, sweats, weakness, others EENTM: denies: blurred vision, double vision, ear bleeding, ear discharge, ear drainage, ear pain, ear ringing, eye pain, eye redness, hearing loss, mouth pain, mouth swelling, nasal discharge, nose bleeding, nose congestion, nose pain, photophobia, tearing, throat pain, throat swelling, voice changes, others Respiratory: reports: shortness of breath; denies: cough, hemoptysis, orthopnea, SOB at rest, SOB with excertion, stridor, wheezing, others Cardiovascular: reports: chest pain, lightheadedness; denies: dizzy spells, diaphoresis, Dyspnea on exertion, edema, irregular heart beat, left arm pain, palpitations, PND, syncope, others Gastrointestinal: denies: abdomen distended, abdominal pain, blood streaked bowels, constipated, diarrhea, dysphagia, difficulty swallowing, hematemesis, melena, nausea, poor appetite, poor fluid intake, rectal bleeding, rectal pain, vomiting, others Genitourinary: denies: burning, dysuria, flank pain, frequency, hematuria, incontinence, penile discharge, penile sore, pain, testicle pain, testicle swelling, urgency, others Neurological: denies: dizziness, fainting, headache, left sided numbness, left sided weakness, numbness, paresthesia, pre-existing deficit, right sided numbness, right sided weakness, seizure, speech problems, tingling, tremors, weakness, others Musculoskeletal: denies: back pain, gout, joint pain, joint swelling, muscle pain, muscle stiffness, neck pain, others Integumetry: denies: bruises, change in color, change in hair/nails, dryness, laceration, lesions, lumps, rash, wounds, others Allergic/Immunocompromised: denies: Difficulty Healing, Frequent Infections, Hives, Itching, others Hematologic/Lymphatic: denies: anemia, blood clots, easy bleeding, easy bruising, swollen glands, others Endocrine: denies: excessive hunger, excessive sweating, excessive thirst, excessive urination, flushing, intolerance to cold, intolerance to heat, unexplained weight gain, unexplained weight loss, others Psychiatric: denies: anxiety, bipolar disorder, depression, hopeless, panic disorder, schizophrenia, sleepless, suicidal, others All Other Systems: Reviewed and Negative Vital Signs Vital Signs Date Time Temp Pulse Resp B/P (MAP) Pulse Ox O2 Delivery O2 Flow Rate FiO2 05/04/25 21:00 98.1 66 18 129/73 (91) 98 98.1 05/04/25 17:12 Room Air* 0 21 Physical Exam GENERAL: Alert and oriented x 3. No acute distress. EYES: PERRL, EOMI. Anicteric. HENT: Moist mucous membranes. LUNGS: Clear to auscultation bilaterally. CARDIOVASCULAR: Regular rate and rhythm. ABDOMEN: Soft, nontender and nondistended. EXTREMITIES: No edema. NEUROLOGIC: No focal neurological deficits. SKIN: Warm, dry. Labs/Diagnostic Data Labs Test 05/04/25 18:57 05/03/25 08:38 Range/Units Troponin I High Sensitivity 4 </=54 ng/L White Blood Count 7.7 4.4-10.8 10^3/uL Red Blood Count 4.67 4.5-5.90 10^6/uL Hemoglobin 14.2 13.5-17.5 g/dL Hematocrit 41.7 41.0-53.0 % Mean Corpuscular Volume 89.2 80.0-100.0 fL Mean Corpuscular Hemoglobin 30.3 28.0-32.0 pg Mean Corpuscular Hemoglobin Concent 34.0 32.0-36.0 g/dL Red Cell Distribution Width 15.0 H 11.8-14.3 % Platelet Count 176 140-450 10^3/uL Mean Platelet Volume 9.3 6.9-10.8 fL Neutrophils (%) (Auto) 69.4 37.0-80.0 % Lymphocytes (%) (Auto) 18.2 10.0-50.0 % Monocytes (%) (Auto) 8.4 0.0-12.0 % Eosinophils (%) (Auto) 3.7 0.0-7.0 % Basophils (%) (Auto) 0.3 0.0-2.0 % Neutrophils # (Auto) 5.3 1.6-8.6 10 ^3/uL Lymphocytes # (Auto) 1.4 0.4-5.4 10 ^3/uL Monocytes # (Auto) 0.6 0-1.3 10 ^3/uL Eosinophils # (Auto) 0.3 0-0.8 10 ^3/uL Basophils # (Auto) 0 0-0.2 10 ^3/uL Nucleated Red Blood Cells 0.1 % Sodium Level 137 136-145 mmol/L Potassium Level 3.8 3.5-5.1 mmol/L Chloride Level 103 98-107 mmol/L Carbon Dioxide Level 25 20-31 mmol/L Anion Gap 9 5-15 Blood Urea Nitrogen 23 9-23 mg/dL Creatinine 1.12 0.700-1.30 mg/dL Glomerular Filtration Rate Calc 71 >90 mL/min BUN/Creatinine Ratio 20.5 H 10.0-20.0 Serum Glucose 105 74-106 mg/dL Calcium Level 10.2 8.7-10.4 mg/dL Assessment Hypertension, well controlled. Chest pain of unknown etiology. Hypotension. Plan/Recommendation I agree with your ongoing assessment and care of plan. Telemetry reviewed. Echocardiogram. Aspirin, Lipitor. DVT and prophylactics. Morphine and Tylenol for pain management. Nitro SL. Additional plan as per the hospital course. A total of 45 minutes was spent reviewing the patient record, examining the patient, making a diagnostic and therapeutic plan, discussing this plan with medical personnel, following up on diagnostic studies and following the patient for clinical stability excluding any and all procedures. At least 50% of this time was spent in direct, [id number] contact. Plan discussed with: Patient DUDLEY,DAISY Alcazar MD May 04, 2025 22:59
[2025-05-05 05:00] VITALS: BP 123/79; PULSE 58; RESP 16; TEMP 98; O2SAT 97
[2025-05-05 08:00] VITALS: PULSE 56; RESP 18; O2SAT 96
[2025-05-05 09:00] VITALS: BP 119/62; PULSE 56; RESP 20; TEMP 97.6; O2SAT 98
--- NOTE | 2025-05-05 12:56 | DVHDS2 ---
Discharge Summary Date of Admission May 03, 2025 at 21:03 Date of Discharge: May 05, 2025 Labs/Diagnostic Data: Laboratory Results Test 05/05/25 07:28 05/03/25 08:38 Troponin I High Sensitivity 5 ng/L (</=54) White Blood Count 7.7 10^3/uL (4.4-10.8) Red Blood Count 4.67 10^6/uL (4.5-5.90) Hemoglobin 14.2 g/dL (13.5-17.5) Hematocrit 41.7 % (41.0-53.0) Mean Corpuscular Volume 89.2 fL (80.0-100.0) Mean Corpuscular Hemoglobin 30.3 pg (28.0-32.0) Mean Corpuscular Hemoglobin Concent 34.0 g/dL (32.0-36.0) Red Cell Distribution Width 15.0 % (11.8-14.3) Platelet Count 176 10^3/uL (140-450) Mean Platelet Volume 9.3 fL (6.9-10.8) Neutrophils (%) (Auto) 69.4 % (37.0-80.0) Lymphocytes (%) (Auto) 18.2 % (10.0-50.0) Monocytes (%) (Auto) 8.4 % (0.0-12.0) Eosinophils (%) (Auto) 3.7 % (0.0-7.0) Basophils (%) (Auto) 0.3 % (0.0-2.0) Neutrophils # (Auto) 5.3 10 ^3/uL (1.6-8.6) Lymphocytes # (Auto) 1.4 10 ^3/uL (0.4-5.4) Monocytes # (Auto) 0.6 10 ^3/uL (0-1.3) Eosinophils # (Auto) 0.3 10 ^3/uL (0-0.8) Basophils # (Auto) 0 10 ^3/uL (0-0.2) Nucleated Red Blood Cells 0.1 % Sodium Level 137 mmol/L (136-145) Potassium Level 3.8 mmol/L (3.5-5.1) Chloride Level 103 mmol/L (98-107) Carbon Dioxide Level 25 mmol/L (20-31) Anion Gap 9 (5-15) Blood Urea Nitrogen 23 mg/dL (9-23) Creatinine 1.12 mg/dL (0.700-1.30) Glomerular Filtration Rate Calc 71 mL/min (>90) BUN/Creatinine Ratio 20.5 (10.0-20.0) Serum Glucose 105 mg/dL (74-106) Calcium Level 10.2 mg/dL (8.7-10.4) Other Laboratory Tests 05/03/25 08:38 Brief Hx & Hospital Course: This is a 69 year old male BIBA presenting to the ED with chief complaint of chest pain. Patient reports that he has been experiencing left sided chest pressure with associated SOB and lightheadedness since this morning. Patient relays that prior to EMS arrival he took a dose of ASA. Patient notes history of AAA and [place]. Patient denies any dizziness, headache, syncope, N/V, or abdominal pain. He is admitted and noted to be hypotensive. [place] secondary to multiple blood pressure medications. His BP med given have been discontinued in the hospital and received IV fluids. His blood pressure has normalized. His symptoms resolved. He is evaluated by dairy farm manager as well. Rest of his workup in the hospitalist normal. Therefore it is felt he could be safely discharged home. Patient is counseled and educated regarding checking blood pressure daily at home and stopping some of his blood pressure medications and resume slowly if his blood pressure goes anything above 140/80. I have talked with the patient at length regarding his medication adjustments and checking blood pressure and follow up with his PCP. Patient verbalized understanding of my conversation with him, verbalized understanding his hospital diagnosis, treatment he received, discharge instructions, discharge medications and agree with the follow up plan of care as outlined. Condition at Discharge: Stable Final Diagnosis/Problems List Hypotension due to BP medications resolved Discharge Disposition: Home Discharge Instruct/Medications Diet: Consistent carbohydrate, Cardiac 2g Na,low cholest Activity: No Restrictions, As Tolerated Follow Up/Referral: Primary care physician next week to further manage your blood pressure and adjust her medications Medications: Stop taking Cardura and lisinopril due to low blood pressure. Take half a tablet of hydrochlorothiazide when your blood pressure is above 140/80. Scheduled Aspirin (Aspirin Low Dose), 1 TAB PO DAILY, (Reported) Atorvastatin Calcium (Lipitor), 1 TAB PO DAILY, (Reported) Hctz (Hydrochlorothiazide), 1 TAB PO DAILY, (Reported) Ibuprofen Micronized (Ibuprofen), 800 MG PO Q8HPRN, (Reported) Omeprazole (Gnp Omeprazole), 20 MG PO BID Polyethylene Glycol 3350 (Glycolax), 17 GM PO DAILY, (Reported) Discontinued Medications Diphenhydramine Hcl (Benadryl Allergy), 25 MG PO QID Doxazosin Mesylate (Doxazosin Mesylate), 1 TAB PO DAILY, (Reported) Doxazosin Mesylate (Doxazosin Mesylate), 4 MG PO HS, (Reported) Levofloxacin Hemihydrate (Levaquin 500 Mg), 500 MG PO DAILY Lisinopril (Lisinopril), 1 TAB PO DAILY, (Reported) Metronidazole (Metronidazole), 500 MG PO TID Prednisone (Prednisone), 20 MG PO BID Discharge Statement: "Patient was advised to return to the ER or call 911 if any headaches, dizziness, shortness of breath, chest pain, abdominal pain, bleeding, fevers, or worsening of medical condition. Patient was counseled about treatment plan, medications, possible side effects, patientverbalized understanding. All questions were answered to the best of my ability. This discharge took greater then 30 minutes in planning, reviewing documentation, counseling the patient, and discussing with other team members." ASSESSMENT ASSESSMENT Assessment Hypotension due to BP medications resolved Date of Service: May 05, 2025 Billing Provider: ELIZABETH DÍAZ MD Common Visit Codes: [id number] DISCH DAY <30MIN ELIZABETH DÍAZ MD May 05, 2025 12:56
[2025-05-05 13:08] VITALS: BP 117/65; PULSE 50; RESP 20; TEMP 97.8; O2SAT 99
[2025-05-05 13:19] VITALS: BP 117/65; PULSE 60; RESP 18; TEMP 97.8; O2SAT 96
--- NOTE | 2025-05-05 23:51 | DVHPN2 ---
Progress Note - Dictate Date Seen: May 05, 2025 Medical Necessity Reason Pt with a Central, PICC or Fol: No Subjective Patient was seen and evaluated in follow up. No overnight events. Patient complains of chest discomfort. Repeat troponin is negative. Echocardiogram is pending. Telemetry reviewed. vital signs Vital Sign Date Time Temp Pulse Resp B/P (MAP) Pulse Ox O2 Delivery O2 Flow Rate FiO2 05/05/25 09:00 97.6 56 20 119/62 (81) 98 97.6 05/05/25 08:00 Room Air* 0 21 Total Intake and Output 05/04/25 05/04/25 05/05/25 15:00 23:00 07:00 Intake Total 600 ml 900 ml Balance 600 ml 900 ml medications Current Medications Medications Dose Ordered Sig/Callie Route Start Time Stop Time Status Last Admin Dose Admin Sodium Chloride 10 ml Q8HR IV 05/03/25 22:00 05/05/25 05:28 10 ML Docusate Sodium 100 mg BIDPRN PRN PO 05/03/25 21:15 Acetaminophen 650 mg Q6HP PRN PO 05/03/25 21:15 Ondansetron HCl 4 mg Q4HP PRN IV 05/03/25 21:15 Enoxaparin Sodium 40 mg DAILY SC 05/04/25 10:00 05/05/25 08:46 40 MG Nitroglycerin 0.4 mg Q5MINP PRN SL 05/03/25 21:15 Morphine Sulfate 2 mg Q30M PRN IV 05/03/25 21:15 Aspirin 81 mg DAILY PO 05/04/25 10:00 05/05/25 08:47 81 MG Atorvastatin Calcium 80 mg DAILY PO 05/04/25 10:00 05/05/25 08:46 80 MG Pantoprazole Sodium 40 mg BID PO 05/03/25 22:00 05/05/25 08:46 40 MG objective GENERAL: Alert and oriented x 3. No acute distress. EYES: PERRL, EOMI. Anicteric. HENT: Moist mucous membranes. LUNGS: Clear to auscultation bilaterally. CARDIOVASCULAR: Regular rate and rhythm. ABDOMEN: Soft, nontender and nondistended. EXTREMITIES: No edema. NEUROLOGIC: No focal neurological deficits. SKIN: Warm, dry. laboratory and microbiology Laboratory Tests 05/03/25 08:38 Test 05/03/25 08:38 Range/Units Serum Glucose 105 74-106 mg/dL Problem List Hypertension, well controlled. Chest pain of unknown etiology. Hypotension. Assessment/Plan Continued all current supportive medical care. Echocardiogram. Aspirin, Lipitor. DVT and prophylactics. Morphine and Tylenol for pain management. Nitro SL. Additional plan as per the hospital course. Plan discussed with: Patient DAISY DUDLEY MD May 05, 2025 13:08
--- NOTE | 2025-05-06 00:47 | DVHSR ---
APPROVED REPORT EXAM: Two-dimensional and M-mode echocardiogram with Doppler and color Doppler. Blood Pressure: 123/79 mmHg INDICATION Chest Pain RISK FACTORS Height: 5' 11", Weight: 235 DIMENSIONS LVDd5.0 (3.8-5.7cm)LA (2D)4.0 (1.9-4.0cm)Aortic Root3.7 (2.0-3.7cm) LVDs3.5 (2.5-4.0cm)LA (MM) (1.9-4.0cm)Aortic Cusp Exc1.7 (1.5-2.0cm) EF (%) 58.0 (55-70%)Rt. Atrium3.7 (1.9-4.0cm)Asc. Aorta cm IVSd1.1 (0.7-1.1cm)RV (D) (1.8-2.4cm) PWd1.1 (0.7-1.1cm) Mitral Valve MitralMitral Stenosis E wave0.90m/sMV Mean GR.mmHg A wave0.80m/sMV Peak GR.mmHg E/A ratio1.12D MVAcm2 Aortic Valve Aortic ValveAortic Stenosis V11.00m/Martha Mean GR.5mmHg V21.50m/Martha Peak GR.10mmHg LVOT Diameter2.3 (1.8-2.4cm)Doppler AVA2.77cm2 Pulmonic Valve V20.50m/s Tricuspid Valve TR Velocity2.10m/s [id number] Other Information Quality : Rhythm : Bradycardia Conclusion LV EJECTION FRACTION IS 65% NORMAL VALVES NORMAL RV FUNCTION NO EFFUSION
--- NOTE | 2025-05-06 08:32 | ECG ---
[facility] Test Date: 2025-05-03 Test Time: 09:17:05 Pat Name: GERRY LEWIS Department: ER Room: 0221T B Gender: M Ged Instructor: SURESH : 1955 Requested By: JF BOWMAN Order Number: [id number] Reading MD: Vishal Walter Measurements Intervals [place] Rate: 84 P: 31 NV: 140 QRS: 59 QRSD: 98 T: 28 QT: 372 QTc: 440 Interpretive Statements Sinus rhythm Electronically Signed On 05-06-2025 22:01:37 PDT by Vishal Walter Please click the below link to view image of tracing.
--- NOTE | 2025-05-06 08:32 | ECG ---
[facility] Test Date: 2025-05-03 Test Time: 08:06:21 Pat Name: GERRY LEWIS Department: ED Room: 0221T B Gender: M Legal Manager: YANNI : 1955 Requested By: JF BOWMAN Order Number: [id number] Reading MD: Vishal Walter Measurements Intervals [place] Rate: 68 P: 4 WI: 140 QRS: -2 QRSD: 104 T: 27 QT: 394 QTc: 420 Interpretive Statements Sinus rhythm Low voltage, precordial leads Electronically Signed On 05-06-2025 22:01:22 PDT by Vishal Walter Please click the below link to view image of tracing.
== END 2025-05-05 13:40 | disposition home or self-care (01) | DRG 206 ==
LOC: ER 08:01 → EDBD 08:01 → OVERFLOW 21:03 → CENTRAL 05-04 17:04 → TELE-CENTR 05-05 02:19
PROVIDERS: ADMIT Internal Medicine; ATTEND Internal Medicine
DX: M94.0 Chondrocostal junction syndrome [Tietze] (principal); I95.2 Hypotension due to drugs; I10 Essential (primary) hypertension; T50.995A Adverse effect of other drugs, medicaments and biological substances, initial encounter; Z86.79 Personal history of other diseases of the circulatory system; Z79.899 Other long term (current) drug therapy; Z79.82 Long term (current) use of aspirin; Z79.1 Long term (current) use of non-steroidal anti-inflammatories (NSAID); Y92.89 Other specified places as the place of occurrence of the external cause
CPT/HCPCS: 36415; 80048; 84484; 85025; 93005; 93306; 96361; 96374; 96375; G0378; J2405

== ENCOUNTER 2025-07-16 07:57 | Inpatient (IN) | payer MEDICARE, MEDICAID ==
[~2025-07-16] VITALS: Ht 180.3 cm; Wt 94.5 kg
[~2025-07-16 07:57] MED LIST changes: -DIPH25CA66 PO; -DOXA4TAB83 PO; -LEVO500T91 PO; -LISI10TA34 PO; -MET500T PO; -PRED20TA2 PO
--- NOTE | 2025-07-16 08:10 | ECG ---
[facility] Test Date: 2025-07-16 Test Time: 08:06:04 Pat Name: GERRY LEWIS Department: ED Room: [address] [place] [address] Gender: M Deburring Machine Operator: MARISSA : 1955 Requested By: DONNA OSUNA Order Number: [id number] Reading MD: Vishal Walter Measurements Intervals [place] Rate: 64 P: 15 MO: 140 QRS: 70 QRSD: 100 T: 56 QT: 407 QTc: 420 Interpretive Statements Sinus rhythm Electronically Signed On 07-16-2025 15:25:08 PDT by Vishal Walter Please click the below link to view image of tracing.
--- NOTE | 2025-07-16 08:15 | ED.PDOC ---
HPI Comments This is a 69 year old male presenting to the ED with chief complaint of chest pain. Patient reports that he has been experiencing substernal sharp 8/10 non- radiating chest pain with associated SOB and chills since 0430 this morning. Patient relays that deep breaths worsen his pain. Patient denies any dizziness, cough, congestion, headache, abdominal pain, or N/V. Chief Complaint: Shortness of Breath Time Seen by MD: 08:13 Primary Care Provider: jeaneth Vazquez Notes: Nurses Notes, Medications, Allergies Allergies: Coded Allergies: NO KNOWN ALLERGIES (Unverified , 05/15/20) Home Meds Active Scripts Omeprazole (Gnp Omeprazole) 20 Mg Tab, 20 MG PO BID for 10 Days, #20 TAB Prov:RACHNA CARRINGTON MD 03/01/25 Reported Medications Ibuprofen Micronized (Ibuprofen) 800 Mg Tab, 800 MG PO Q8HPRN, TAB 02/10/25 Polyethylene Glycol 3350 (Glycolax) 17 Gm/Scoop Pow, 17 GM PO DAILY, POW 02/10/25 Atorvastatin Calcium (Lipitor) 80 Mg Tab, 1 TAB PO DAILY, #30 TAB 5 Refills 02/10/25 Aspirin (Aspirin Low Dose) 81 Mg Tab, 1 TAB PO DAILY 02/10/25 Hctz (Hydrochlorothiazide) 25 Mg Tab, 1 TAB PO DAILY 02/10/25 Information Source: Patient Mode of Arrival: Ambulatory Severity: Moderate Timing: Hours Duration: Since onset Prehospital treatment: None Location: Substernal Radiation: No Radiation Quality: Sharp Onset: At Rest Cardiac Risk Factors: Hyperlipidemia, HTN PE Risk Factors: None History of: Similar pain in past, PA Associated Signs and Symptoms: SOB Past Medical History PAST MEDICAL HISTORY: Cancer (Prostate), High Lipids, HTN, PA Past Medical History (Other): AAA Surgical History: Hernia Repair, PTCA, Tonsillectomy Surgical History (Other): AAA surgery Family History Family History: Reviewed,noncontributory to illness, Family hx of Cancer Social History Smoker: Other (Vapes) Alcohol: Denies ETOH Use Drugs: Denies Drug Use Lives In: Home Constitutional: reports: chills; denies: diaphoresis, fatigue, fever, malaise, sweats, weakness, others EENTM: denies: blurred vision, double vision, ear bleeding, ear discharge, ear drainage, ear pain, ear ringing, eye pain, eye redness, hearing loss, mouth pain, mouth swelling, nasal discharge, nose bleeding, nose congestion, nose pa in, photophobia, tearing, throat pain, throat swelling, voice changes, others Respiratory: reports: shortness of breath; denies: cough, hemoptysis, orthopnea, SOB at rest, SOB with excertion, stridor, wheezing, others Cardiovascular: reports: chest pain; denies: dizzy spells, diaphoresis, Dyspnea on exertion, edema, irregular heart beat, left arm pain, lightheadedness, palpitations, PND, syncope, others Gastrointestinal: denies: abdomen distended, abdominal pain, blood streaked bowels, constipated, diarrhea, dysphagia, difficulty swallowing, hematemesis, melena, nausea, poor appetite, poor fluid intake, rectal bleeding, rectal pain, vomiting, others Genitourinary: denies: burning, dysuria, flank pain, frequency, hematuria, incontinence, penile discharge, penile sore, pain, testicle pain, testicle swelling, urgency, others Neurological: denies: dizziness, fainting, headache, left sided numbness, left sided weakness, numbness, paresthesia, pre-existing deficit, right sided numbness, right sided weakness, seizure, speech problems, tingling, tremors, weakness, others Musculoskeletal: denies: back pain, gout, joint pain, joint swelling, muscle pain, muscle stiffness, neck pain, others Integumetry: denies: bruises, change in color, change in hair/nails, dryness, laceration, lesions, lumps, rash, wounds, others Allergic/Immunocompromised: denies: Difficulty Healing, Frequent Infections, Hives, Itching, others Hematologic/Lymphatic: denies: anemia, blood clots, easy bleeding, easy bruising, swollen glands, others Endocrine: denies: excessive hunger, excessive sweating, excessive thirst, excessive urination, flushing, intolerance to cold, intolerance to heat, unexplained weight gain, unexplained weight loss, others Psychiatric: denies: anxiety, bipolar disorder, depression, hopeless, panic disorder, schizophrenia, sleepless, suicidal, others All Other Systems: Reviewed and Negative Physical Exam General Appearance: Moderate Distress HEENT: Normal ENT Inspection, Pharynx Normal, TMs Normal Neck: Full Range of Motion, Non-Tender, Normal, Normal Inspection Respiratory: Chest Non-Tender, Lungs Clear, No Accessory Muscle Use, No R espiratory Distress, Normal Breath Sounds Cardiovascular: No Edema, No JVD, No Murmur, No Gallop, Normal Peripheral Pulses, Regular Rate/Rhythm Breast Exam: Deferred Gastrointestinal: No Organomegaly, Non Tender, No Pulsatile Mass, Normal Bowel Sounds, Soft Genitalia: Deferred Pelvic: Deferred Rectal: Deferred Extremities: No calf tenderness, Normal capillary refill, No pedal edema Musculoskeletal : Apperance: Normal Neurologic: Alert, program checker II-XII nml as Tested, Motor Weakness, Normal Affect, Normal Mood, No Sensory Deficits Cerebellar Function: Normal Reflexes: Normal Skin: Dry, Pallor, Warm Lymphatic: No Adenopathy EKG EKG : Pulse Rate (adult): 64 [place]: Normal Cardiac Rhythm: NSR Block: None Hypertrophy: None ST: Normal Was a procedure done? Was a procedure done?: No CP Differential Dx Differential Diagnosis: A-fib, Angina, PSVT Differential Diagnosis: CHF Differential Diagnosis: Pericarditis X-Ray, Labs, Meds, VS Vital Signs Date Time Temp Pulse Resp B/P (MAP) Pulse Ox O2 Delivery O2 Flow Rate FiO2 07/16/25 09:40 63 18 112/72 (85) 97 07/16/25 09:40 67 18 96 Room Air 07/16/25 08:15 64 07/16/25 08:06 64 07/16/25 07:58 97.9 77 20 139/83 97 97.9 Lab Test 07/16/25 10:08 07/16/25 09:49 07/16/25 09:20 07/16/25 08:23 Range/Units SARS-CoV-2 Antigen (Rapid) Negative NEGATIVE Urine Color Yellow Yellow Urine Clarity Clear Clear Urine pH 5.5 5.0-9.0 Urine Specific [place] 1.018 1.001-1.035 Urine Protein Negative Negative Urine Ketones Negative Negative Urine Blood Negative Negative /uL Urine Nitrite Negative Negative Urine Bilirubin Negative Negative Urine Urobilinogen Normal Negative mg/dL Urine Leukocyte Esterase Negative Negative /uL Urine RBC 1 0 - 3 /hpf Urine Microscopic WBC 1 0-3 /HPF Urine Squamous Epithelial Cells Few <5 /hpf Urine Bacteria None seen None Seen /hpf Urine Glucose Normal Normal mg/dL Urine Opiates Screen Neg NEGATIVE Urine Fentanyl Screen Neg NEGATIVE Urine Barbiturates Screen Neg NEGATIVE Urine Phencyclidine Screen Neg NEGATIVE Urine Amphetamines Screen Neg NEGATIVE Urine Benzodiazepines Screen Neg NEGATIVE Urine Cocaine Screen Neg NEGATIVE Urine Cannabinoids Screen Neg NEGATIVE D-Dimer, Quantitative 3.50 H 0.0-0.49 mg/L FEU Troponin I High Sensitivity 3 L < 3 L </=54 ng/L Thyroid Stimulating Hormone (TSH) 1.66 0.55-4.78 uIU/mL White Blood Count 10.2 4.4-10.8 10^3/uL Red Blood Count 4.90 4.5-5.90 10^6/uL Hemoglobin 15.1 13.5-17.5 g/dL Hematocrit 44.0 41.0-53.0 % Mean Corpuscular Volume 89.8 80.0-100.0 fL Mean Corpuscular Hemoglobin 30.8 28.0-32.0 pg Mean Corpuscular Hemoglobin Concent 34.3 32.0-36.0 g/dL Red Cell Distribution Width 13.8 11.8-14.3 % Platelet Count 217 140-450 10^3/uL Mean Platelet Volume 8.9 6.9-10.8 fL Neutrophils (%) (Auto) 75.3 37.0-80.0 % Lymphocytes (%) (Auto) 14.7 10.0-50.0 % Monocytes (%) (Auto) 7.3 0.0-12.0 % Eosinophils (%) (Auto) 2.3 0.0-7.0 % Basophils (%) (Auto) 0.4 0.0-2.0 % Neutrophils # (Auto) 7.7 1.6-8.6 10 ^3/uL Lymphocytes # (Auto) 1.5 0.4-5.4 10 ^3/uL Monocytes # (Auto) 0.7 0-1.3 10 ^3/uL Eosinophils # (Auto) 0.2 0-0.8 10 ^3/uL Basophils # (Auto) 0 0-0.2 10 ^3/uL Nucleated Red Blood Cells 0.0 % Sodium Level 138 136-145 mmol/L Potassium Level 4.0 3.5-5.1 mmol/L Chloride Level 101 98-107 mmol/L Carbon Dioxide Level 28 20-31 mmol/L Anion Gap 9 5-15 Blood Urea Nitrogen 17 9-23 mg/dL Creatinine 1.17 0.700-1.30 mg/dL Glomerular Filtration Rate Calc 67 >90 mL/min BUN/Creatinine Ratio 14.5 10.0-20.0 Serum Glucose 101 74-106 mg/dL Calcium Level 9.5 8.7-10.4 mg/dL Current Medications Medications (Trade) Dose Ordered Sig/Callie Route Start Time Stop Time Status Last Admin Aspirin 162 mg ONCE ONCE PO 07/16/25 08:15 07/16/25 08:16 DC 07/16/25 09:45 Chest XR indicates: NO ACUTE CARDIOPULMONARY PROCESS. The patient was given aspirin here in the emergency department's The chemistry panel is within normal limits A CBC is within normal limits. The D-dimer was done and it shows to be 3.5 The COVID test is negative The urine test is negative The UDS is negative Based on the elevated D-dimer and the patient's shortness for breath and chest pain, we ordered a CAT scan of the chest to rule out PE The CAT scan of the chest shows: IMPRESSION: No evidence for large pulmonary embolism. Prominent bilateral hilar and mediastinal lymphadenopathy which can be secondary to infectious, inflammatory, neoplastic etiologies. Small bilateral pulmonary nodules up to 5 mm. Recommend follow-up per Fleischner society criteria guidelines. Coronary artery calcification disease. Cholelithiasis. The patient is being admitted to the hospitalist at this time. The patient also has gallstones. Images Reviewed?: Images reviewed and evaluated by me Time of 1ST Reevaluation: 11:57 Reevaluation 1ST: Unchanged Patient Education/Counseling: Diagnosis, Treatment, Prognosis Family Education/Counseling: No Family Present SEPSIS Sepsis Screen Date sepsis recognized/suspect: Jul 16, 2025 Time Sepsis recognized/suspect: 08 Recent Procedure: No On Antibiotic Therapy: No Respiratory Rate >20: No Heart Rate >90: No Temp<36 C (96.8 F) or >38.3 C: No SBP <90 or MAP <65 mmHG: No New Acute Mental Status Change: No Is the patient on CPAP, BIPAP,: No Physician Orders Heplock Iv (07/16/25 08:10) Rfid Analyst (07/16/25 08:10) Blood Pressure (07/16/25 08:10) Pulse Oximetry (07/16/25 08:10) Chest Two Views Routine (07/16/25 08:10) Troponin-I Hs (07/16/25 11:10) Vital Signs Date Time Temp Pulse Resp B/P (MAP) Pulse Ox O2 Delivery O2 Flow Rate FiO2 07/16/25 09:40 63 18 112/72 (85) 97 07/16/25 09:40 67 18 96 Room Air 07/16/25 08:15 64 07/16/25 08:06 64 07/16/25 07:58 97.9 77 20 139/83 97 97.9 Laboratory Tests Test 07/16/25 08:23 White Blood Count 10.2 10^3/uL (4.4-10.8) Medications Medications Dose Ordered Sig/Callie Route Start Time Stop Time Status Last Admin Dose Admin Aspirin 162 mg ONCE ONCE PO 07/16/25 08:15 07/16/25 08:16 DC 07/16/25 09:45 Departure 1 Departure Time of Disposition: 11:55 Impression: Primary Impression: Acute chest pain Additional Impressions: Elevated d-dimer Cholelithiasis Qualified Codes: K80.20 - Calculus of gallbladder without cholecystitis without obstruction Disposition: ADMITTED INPATIENT Admit to: [facility] Condition: Fair Critical Care Note Critical Care Time?: No Stability Stability form required: Yes Unstable for transfer: Telemetry monitoring (Telemetry monitoring required), ED Physician Assesment (Clinical assesment) Heart Score Heart Score: Heart Score Response (Comments) Value History Highly Suspicious 2 EKG Normal 0 Age >65 2 Risk Factors >3 or Hx ASHD 2 Troponin Normal limit 0 Total 6 I personally scribed for DONNA OSUNA MD ([email or web address]) on 07/16/25 at 08:15. Electronically submitted by Nacho Means ([email or web address]). I personally scribed for DONNA OSUNA MD ([email or web address]) on 07/16/25 at 09:18. Electronically submitted by Nacho Means ([email or web address]). DONNA OSUNA MD Jul 16, 2025 08:15
[2025-07-16 08:53] LABS: Hematocrit 44.0 % (41.0-53.0); Hemoglobin 15.1 g/dL (13.5-17.5); Mean Corpuscular Hemoglobin 30.8 pg (28.0-32.0); Mean Corpuscular Volume 89.8 fL (80.0-100.0); Nucleated Red Blood Cells % 0.0 %
[2025-07-16 08:57] LABS: Chloride 101 mmol/L (98-107); Potassium 4.0 mmol/L (3.5-5.1); Sodium 138 mmol/L (136-145)
[2025-07-16 08:58] LABS: Anion Gap 9 (5-15); Calcium 9.5 mg/dL (8.7-10.4); Carbon Dioxide 28 mmol/L (20-31)
[2025-07-16 09:03] LABS: BUN/Creatinine Ratio 14.5 (10.0-20.0); Blood Urea Nitrogen 17 mg/dL (9-23); Glucose 101 mg/dL (74-106)
--- NOTE | 2025-07-16 09:03 | DVH ---
CLINICAL HISTORY: CP TECHNIQUE: Chest 2 views of the chest were obtained. COMPARISON: None FINDINGS: The heart size and pulmonary vasculature are normal. The lungs are clear. No pleural effusion is pres ent. IMPRESSION: NO ACUTE CARDIOPULMONARY PROCESS.
--- NOTE | 2025-07-16 09:24 | DVHHP2 ---
History of Present Illness Reason for Visit: Chest pain History of Present Illness Kulwant Lal JR is a 69-year-old male with past medical history of hyperlipidemia, hypertension, prostate cancer, GA, AAA status post 2 stents, hernia repair, and tonsillectomy who presents to the ED with epigastric pain that started this morning around 430, reported that it woke him up from his sleep. Reports that the pain is 10/10 burning and constant. He reports that the pain is worse when he deep breathes however is better when he does not take deep breaths. Patient reports that the pain does not radiate anywhere. He also endorses that he eats spicy and greasy foods. Patient denies any recent trauma or injury, recent sick contacts, recent travels, recent ingestion of spoiled food, shortness of breath, fever, chills, lightheadedness, weakness, dizziness, nausea, vomiting, diarrhea, or urinary symptoms. Cardiovascular: HTN, GA, hyperipidemia Past Medical History Prostate cancer AAA Past Surgical History: Hernia Repair, Other (Status post 2 stents in the aorta per patient), Tonsillectomy Family History: Cancer, Other (Dad with lung cancer . Mom with brain tumor .) Smoke: # pack years (Vapes) ALCOHOL: none Drugs: None Lives: with Family Domestic Violence: Neg Review of Systems Cardiovascular: Chest Pain Allergies: Coded Allergies: NO KNOWN ALLERGIES (Unverified , 05/15/20) Exam Vital Signs Vital Signs Date Time Temp Pulse Resp B/P (MAP) Pulse Ox O2 Delivery O2 Flow Rate FiO2 07/16/25 08:15 64 07/16/25 07:58 97.9 20 139/83 97 97.9 General Appearance: Alert, Oriented X3, Cooperative, No acute distress HEENT: Atraumatic, PERRLA, EOMI, Mucous membr. moist/pink Respiratory: Clear to auscultation, Normal air movement Cardiovascular: Regular rate, Normal S1, Normal S2, No murmurs Abdominal: Normal bowel sounds, Soft Extremities: No clubbing, No cyanosis, Normal pulses Skin: No significant lesion Neuro: Normal gait, Normal speech, Strength at 5/5 X4 ext, Normal tone, Sensation intact Psych/Mental Status: Mental status NL, Mood NL Labs/Xrays Labs Test 07/16/25 08:23 Range/Units White Blood Count 10.2 4.4-10.8 10^3/uL Red Blood Count 4.90 4.5-5.90 10^6/uL Hemoglobin 15.1 13.5-17.5 g/dL Hematocrit 44.0 41.0-53.0 % Mean Corpuscular Volume 89.8 80.0-100.0 fL Mean Corpuscular Hemoglobin 30.8 28.0-32.0 pg Mean Corpuscular Hemoglobin Concent 34.3 32.0-36.0 g/dL Red Cell Distribution Width 13.8 11.8-14.3 % Platelet Count 217 140-450 10^3/uL Mean Platelet Volume 8.9 6.9-10.8 fL Neutrophils (%) (Auto) 75.3 37.0-80.0 % Lymphocytes (%) (Auto) 14.7 10.0-50.0 % Monocytes (%) (Auto) 7.3 0.0-12.0 % Eosinophils (%) (Auto) 2.3 0.0-7.0 % Basophils (%) (Auto) 0.4 0.0-2.0 % Neutrophils # (Auto) 7.7 1.6-8.6 10 ^3/uL Lymphocytes # (Auto) 1.5 0.4-5.4 10 ^3/uL Monocytes # (Auto) 0.7 0-1.3 10 ^3/uL Eosinophils # (Auto) 0.2 0-0.8 10 ^3/uL Basophils # (Auto) 0 0-0.2 10 ^3/uL Nucleated Red Blood Cells 0.0 % Sodium Level 138 136-145 mmol/L Potassium Level 4.0 3.5-5.1 mmol/L Chloride Level 101 98-107 mmol/L Carbon Dioxide Level 28 20-31 mmol/L Anion Gap 9 5-15 Blood Urea Nitrogen 17 9-23 mg/dL Creatinine 1.17 0.700-1.30 mg/dL Glomerular Filtration Rate Calc 67 >90 mL/min BUN/Creatinine Ratio 14.5 10.0-20.0 Serum Glucose 101 74-106 mg/dL Calcium Level 9.5 8.7-10.4 mg/dL Troponin I High Sensitivity < 3 L </=54 ng/L CLINICAL HISTORY: CP TECHNIQUE: Chest 2 views of the chest were obtained. COMPARISON: None FINDINGS: The heart size and pulmonary vasculature are normal. The lungs are clear. No pleural effusion is present. IMPRESSION: NO ACUTE CARDIOPULMONARY PROCESS. SEPSIS Sepsis Screen Date sepsis recognized/suspect: Jul 16, 2025 Time Sepsis recognized/suspect: 08 Recent Procedure: No On Antibiotic Therapy: No Respiratory Rate >20: No Heart Rate >90: No Temp<36 C (96.8 F) or >38.3 C: No SBP <90 or MAP <65 mmHG: No New Acute Mental Status Change: No Is the patient on CPAP, BIPAP,: No Physician Orders Heplock Iv (07/16/25 08:10) Treasury Management Sales Consultant (07/16/25 08:10) Blood Pressure (07/16/25 08:10) Pulse Oximetry (07/16/25 08:10) Chest Two Views Routine (07/16/25 08:10) Urinalysis (07/16/25 08:10) Troponin-I Hs (07/16/25 09:10) Troponin-I Hs (07/16/25 11:10) D-Dimer (07/16/25 09:09) Covid19 Antigen Sandra (07/16/25 ) Vital Signs Date Time Temp Pulse Resp B/P (MAP) Pulse Ox O2 Delivery O2 Flow Rate FiO2 07/16/25 08:15 64 07/16/25 08:06 64 07/16/25 07:58 97.9 77 20 139/83 97 97.9 Laboratory Tests Test 07/16/25 08:23 White Blood Count 10.2 10^3/uL (4.4-10.8) Assessment/Plan Assessment/Plan Assessment Chest pain rule out ACS ? Costochondritis Vape use History of hyperlipidemia History of hypertension History of prostate cancer History of GA History of AAA status post 2 stents History of hernia repair History of tonsillectomy Plan Admit to tele Antiemetics Pain management Aspirin + statin ACS workup Echo ordered UA UDS D-dimer Troponin noted BNP Chest x-ray EKG Diet Home medications reconciled DVT prophylaxis-SCDs PUD prophylaxis-PPIs Discussed plan of care with patient and nurse Counseled patient on cessation of vape use [id number] Behavior change smoking greater than 10 minutes about use of other options also gave option of nicotine patch 41222 Preventive counseling healthy eating habits, physical activity, and regular checkups Echo on 05/05/25 LV EJECTION FRACTION IS 65% Plan discussed with: Patient Date of Service: Jul 16, 2025 Billing Provider: TAY HARRIS Common Visit Codes: 27820-AAAFFEB INP/OBS CARE (HIGH) Secondary Visit Codes: 37275-[id number] COUNSELING IND TAY HARRIS Jul 16, 2025 09:24
[2025-07-16 10:25] LABS: Urine Protein, UAD Negative (Negative)
[2025-07-16] MEDS ORDERED: ACETAMINOPHEN 325 MG TAB PO PRN (10:45)
[2025-07-16] MEDS ORDERED: MORPHINE SULFATE INJ 2 MG/ml SYRG IV PRN (10:45)
[2025-07-16] MEDS ORDERED: ONDANSETRON HCL 4 MG/2 ML VIAL IV PRN (10:45)
[2025-07-16] MEDS ORDERED: NITROGLYCERIN 0.4 MG SL TAB SL PRN ×2 (10:45)
[2025-07-16] MEDS ORDERED: MORPHINE SULFATE 4 MG/ML SYR/VIAL IV PRN (10:45)
[2025-07-16 10:48] LABS: COVID19 ANTIGEN SOFIA FIA NEGATIVE (NEGATIVE)
[2025-07-16 10:49] LABS: Amphetamine Screen, Urine Neg (NEGATIVE); Barbiturate Scree,Urine Neg (NEGATIVE); Benzodiazephine Screen, Urine Neg (NEGATIVE); Cannabinoid Screen, Urine Neg (NEGATIVE); Cocaine Screen, Urine Neg (NEGATIVE); Opiate Scree,Urine Neg (NEGATIVE); Phencyclidine Screen, Urine Neg (NEGATIVE)
[2025-07-16] MEDS: IOHEXOL 350 MG/ML 100ML IJ ONE (10:52)
--- NOTE | 2025-07-16 11:47 | DVH ---
Indication: r/o pe Technique: CT axial images of the abdomen and pelvis are obtained with intravenous contrast. Coronal and sagittal reformats were obtained. Comparison: None FINDINGS: No filling defects in the main left right pulmonary arteries. The trachea is patent. No pneumothorax. Pulmonary emphysematous changes. 5 mm right middle lobe subpl eural nodule. Biapical scarring. 3 mm left upper lobe subpleural nodule. The heart is normal in size. Coronary artery calcification disease. Measuring 14 mm. Subcarinal lymp h node measuring 21 mm. Left hilar lymph nodes measuring up to 19 mm. No supraclavicular or axillary lymphadenopathy. Cholelithiasis. There is no aggressive osseous process. IMPRESSION: No evidence for large pulmonary embolism. Prominent bilateral hilar and mediastinal lymphadenopathy which can be secondary to infectious, infla mmatory, neoplastic etiologies. Small bilateral pulmonary nodules up to 5 mm. Recommend follow-up per Fleischner society criteria gu idelines. Coronary artery calcification disease. Cholelithiasis. Other findings as described.
[2025-07-16] MEDS ORDERED: ENOXAPARIN SOD 100 MG/1 ML SYRINGE SC SCH (22:00)
[2025-07-16 22:30] VITALS: BP 144/75; PULSE 66; RESP 18; TEMP 97.4; O2SAT 95
[2025-07-16] MEDS: ATORVASTATIN 20 MG TAB PO SCH (23:26)
[2025-07-16 23:38] VITALS: BP 144/75; PULSE 66; RESP 18; TEMP 97.4; O2SAT 95
[2025-07-17] VITALS (7 sets, daily range): BP systolic 112–130; BP diastolic 67–79; PULSE 60–77; RESP 17–18; TEMP 97.9–98.9; O2SAT 93–95
[2025-07-17] MEDS ORDERED: CLOP75TA70 PO (04:09)
[2025-07-17] MEDS ORDERED: HYDR25TA5 PO (04:09)
[2025-07-17] MEDS ORDERED: LISI10TA34 PO (04:09)
[2025-07-17] MEDS ORDERED: ATOR-47 PO (04:09)
[2025-07-17 07:09] LABS: Hematocrit 39.7 % (41.0-53.0); Hemoglobin 13.7 g/dL (13.5-17.5); Mean Corpuscular Hemoglobin 30.8 pg (28.0-32.0); Mean Corpuscular Volume 89.1 fL (80.0-100.0); Nucleated Red Blood Cells % 0.1 %
[2025-07-17 07:25] LABS: Chloride 101 mmol/L (98-107); Potassium 3.9 mmol/L (3.5-5.1); Sodium 138 mmol/L (136-145)
[2025-07-17 07:26] LABS: Anion Gap 10 (5-15); Calcium 9.0 mg/dL (8.7-10.4); Carbon Dioxide 27 mmol/L (20-31)
[2025-07-17 07:31] LABS: Glucose 98 mg/dL (74-106); Triglycerides 62 mg/dL (< 150)
[2025-07-17 07:32] LABS: BUN/Creatinine Ratio 21.0 (10.0-20.0); Magnesium 1.9 mg/dL (1.6-2.6)
[2025-07-17 07:33] LABS: Cholesterol 79 mg/dL (< 200)
[2025-07-17 07:38] LABS: Blood Urea Nitrogen 25 mg/dL (9-23); HDL Cholesterol 27 mg/dL (40-59)
[2025-07-17] MEDS: ENOXAPARIN SOD 40 MG/0.4 ML SYRINGE SC SCH (10:04)
--- NOTE | 2025-07-17 11:06 | DVHINCON2 ---
Date of service: Jul 16, [address] lewis Reason for Consultation mediastinal lymphadenopathy History of Present Illness HPI 69 yo male, h/o prostate cancer, presented with abd pain and heart burn. Pt has a h/o htn, morbid obesity, smoking, snoring/probable RICHY. denies breathing difficulties CT chest No evidence for large pulmonary embolism. Prominent bilateral hilar and mediastinal lymphadenopathy which can be secondary to infectious, inflammatory, neoplastic etiologies. Small bilateral pulmonary nodules up to 5 mm. Recommend follow-up per Fleischner society criteria guidelines. Coronary artery calcification disease. Cholelithiasis. Home Meds Active Scripts Omeprazole (Gnp Omeprazole) 20 Mg Tab, 20 MG PO BID for 10 Days, #20 TAB Prov:RACHNA CARRINGTON MD 03/01/25 Reported Medications Clopidogrel Bisulfate (CLOPIDOGREL) 75 Mg Tab, 75 MG PO DAILY for 30 Days, MG 07/17/25 Atorvastatin Calcium (ATORVASTATIN CALCIUM) 80 Mg Tab, 80 MG PO HS, TAB 07/17/25 Hctz (Hydrochlorothiazide) 25 Mg Tab, 12.5 MG PO DAILY, TAB 07/17/25 Lisinopril (Lisinopril) 10 Mg Tab, 10 MG PO DAILY for 30 Days, MG 07/17/25 Aspirin (Aspirin Low Dose) 81 Mg Tab, 1 TAB PO DAILY 02/10/25 Discontinued Reported Medications Ibuprofen Micronized (Ibuprofen) 800 Mg Tab, 800 MG PO Q8HPRN, TAB 02/10/25 Polyethylene Glycol 3350 (Glycolax) 17 Gm/Scoop Pow, 17 GM PO DAILY, POW 02/10/25 Atorvastatin Calcium (Lipitor) 80 Mg Tab, 1 TAB PO DAILY, #30 TAB 5 Refills 02/10/25 Hctz (Hydrochlorothiazide) 25 Mg Tab, 1 TAB PO DAILY 02/10/25 Past Medical History Cardiac: HTN Pulmonary: No pertinent Hx Central Nervous System: No pertinent Hx GI: No pertinent Hx Hemotology/Oncology: No pertinent Hx Hepatobiliary: No pertinent Hx Psychiatric: No pertinent Hx Musculoskeletal: No pertinent Hx Rheumotologic: No pertinent Hx Infectious Disease: No peritnent Hx ENT: No pertinent Hx Renal/: No pertinent Hx Endocrine: No pertinent Hx Dermatology: No pertinent Hx Past Surgical History: No pertinent Hx Family History: No pertinent Hx Patient Family History: FH: cancer G8 MOTHER G8 FATHER Parents Review of Systems Constitutional: No symptom reported Ears, Nose, & Throat: No symptom reported Eyes: No symptom reported Pulmonary/Respiratory: No symptom reported Cardiovascular: No symptom reported Gastrointestinal: Nausea, Abdominal Pain Genitourinary: No symptom reported Musculoskeletal: No symptom reported Skin: No symptom reported Psychiatric: No symptom reported Endocrine: No symptom reported Hemotologic/Lymphatic: No symptom reported H&P Exam Vital Signs Vital Signs Date Time Temp Pulse Resp B/P (MAP) Pulse Ox O2 Delivery O2 Flow Rate FiO2 07/17/25 09:00 98.2 76 17 126/79 (95) 95 98.2 07/16/25 23:38 Room Air* 0 21 General Appeara: Well developed, Well nourished, Normal Appearance Head Exam: Normal inspection Neck Exam: Normal inspection, Non-tender, Normal alignment Eye Exam: bilateral eye Normal inspection, bilateral eye PERRL, bilateral eye EOMI Ear Exam: bilateral ear Auricle normal, bilateral ear Canal normal Nasal Exam: Normal inspection Mouth: Normal Inspection Pulmonary/Respiratory: Normal inspection, Normal breath sounds, Chest non- tender Cardiovascular/Chest: Normal inspection Peripheral Pulses: 4+ carotid (R), 4+ carotid (L) Abdominal Exam: Normal bowel sounds, Soft Back Exam: Normal inspection Pelvic Exam: Not done Labs/Xrays Labs Test 07/17/25 06:22 07/16/25 15:38 07/16/25 11:14 07/16/25 10:08 Range/Units White Blood Count 8.6 4.4-10.8 10^3/uL Red Blood Count 4.46 L 4.5-5.90 10^6/uL Hemoglobin 13.7 13.5-17.5 g/dL Hematocrit 39.7 L 41.0-53.0 % Mean Corpuscular Volume 89.1 80.0-100.0 fL Mean Corpuscular Hemoglobin 30.8 28.0-32.0 pg Mean Corpuscular Hemoglobin Concent 34.6 32.0-36.0 g/dL Red Cell Distribution Width 13.0 11.8-14.3 % Platelet Count 187 140-450 10^3/uL Mean Platelet Volume 9.0 6.9-10.8 fL Neutrophils (%) (Auto) 68.9 37.0-80.0 % Lymphocytes (%) (Auto) 19.2 10.0-50.0 % Monocytes (%) (Auto) 9.1 0.0-12.0 % Eosinophils (%) (Auto) 2.5 0.0-7.0 % Basophils (%) (Auto) 0.3 0.0-2.0 % Neutrophils # (Auto) 6.0 1.6-8.6 10 ^3/uL Lymphocytes # (Auto) 1.7 0.4-5.4 10 ^3/uL Monocytes # (Auto) 0.8 0-1.3 10 ^3/uL Eosinophils # (Auto) 0.2 0-0.8 10 ^3/uL Basophils # (Auto) 0 0-0.2 10 ^3/uL Nucleated Red Blood Cells 0.1 % Sodium Level 138 136-145 mmol/L Potassium Level 3.9 3.5-5.1 mmol/L Chloride Level 101 98-107 mmol/L Carbon Dioxide Level 27 20-31 mmol/L Anion Gap 10 5-15 Blood Urea Nitrogen 25 H 9-23 mg/dL Creatinine 1.19 0.700-1.30 mg/dL Glomerular Filtration Rate Calc 66 >90 mL/min BUN/Creatinine Ratio 21.0 H 10.0-20.0 Serum Glucose 98 74-106 mg/dL Calcium Level 9.0 8.7-10.4 mg/dL Magnesium Level 1.9 1.6-2.6 mg/dL Troponin I High Sensitivity 4 </=54 ng/L Triglycerides Level 62 < 150 mg/dL Cholesterol Level 79 < 200 mg/dL LDL Cholesterol 42 < 100 mg/dL HDL Cholesterol 27 L 40-59 mg/dL Lactic Acid Level 0.9 0.4-2.0 mmol/L Hemoglobin A1c 5.6 <5.7 % A1C C-Reactive Protein High Sensitivity 0.27 <1.0 mg/dL Free Thyroxine (T4) Calculated 1.31 0.89-1.76 ng/dL SARS-CoV-2 Antigen (Rapid) Negative NEGATIVE Test 07/16/25 09:49 07/16/25 09:20 Range/Units Urine Color Yellow Yellow Urine Clarity Clear Clear Urine pH 5.5 5.0-9.0 Urine Specific [place] 1.018 1.001-1.035 Urine Protein Negative Negative Urine Ketones Negative Negative Urine Blood Negative Negative /uL Urine Nitrite Negative Negative Urine Bilirubin Negative Negative Urine Urobilinogen Normal Negative mg/dL Urine Leukocyte Esterase Negative Negative /uL Urine RBC 1 0 - 3 /hpf Urine Microscopic WBC 1 0-3 /HPF Urine Squamous Epithelial Cells Few <5 /hpf Urine Bacteria None seen None Seen /hpf Urine Glucose Normal Normal mg/dL Urine Opiates Screen Neg NEGATIVE Urine Fentanyl Screen Neg NEGATIVE Urine Barbiturates Screen Neg NEGATIVE Urine Phencyclidine Screen Neg NEGATIVE Urine Amphetamines Screen Neg NEGATIVE Urine Benzodiazepines Screen Neg NEGATIVE Urine Cocaine Screen Neg NEGATIVE Urine Cannabinoids Screen Neg NEGATIVE D-Dimer, Quantitative 3.50 H 0.0-0.49 mg/L FEU Thyroid Stimulating Hormone (TSH) 1.66 0.55-4.78 uIU/mL Assessment/Plan Plan pulm nodules med lymphadenopathy smoker h/o prostate cancer pt seen and examined lungs clear CT report No evidence for large pulmonary embolism. Prominent bilateral hilar and mediastinal lymphadenopathy which can be secondary to infectious, inflammatory, neoplastic etiologies. Small bilateral pulmonary nodules up to 5 mm. Recommend follow-up per Fleischner society criteria guidelines. Coronary artery calcification disease. Cholelithiasis. plan nodules small not amenable to bx recommend follow up CT in 3-4 months Plan discussed with: Patient RADHA MADSEN MD Jul 17, 2025 11:06
--- NOTE | 2025-07-17 12:42 | DVHPN2 ---
Progress Note - Dictate Date Seen: Jul 17, 2025 Has the PT tested + for MRSA If YES, has PT been informed?: No Medical Necessity Reason Pt with a Central, PICC or Fol: No vital signs Vital Sign Date Time Temp Pulse Resp B/P (MAP) Pulse Ox O2 Delivery O2 Flow Rate FiO2 07/17/25 09:00 98.2 76 17 126/79 (95) 95 98.2 07/16/25 23:38 Room Air* 0 21 Total Intake and Output 07/16/25 07/16/25 07/17/25 15:00 23:00 07:00 Intake Total 600 ml Balance 600 ml medications Current Medications Medications Dose Ordered Sig/Callie Route Start Time Stop Time Status Last Admin Dose Admin Aspirin 81 mg DAILY PO 07/17/25 10:00 07/17/25 10:04 81 MG Atorvastatin Calcium 40 mg HS PO 07/16/25 22:00 07/16/25 23:26 40 MG Morphine Sulfate 2 mg Q30MP PRN IV 07/16/25 10:45 Acetaminophen 650 mg Q6HP PRN PO 07/16/25 10:45 Nitroglycerin 0.4 mg Q5MINP PRN SL 07/16/25 10:45 Ondansetron HCl 4 mg Q4HP PRN IV 07/16/25 10:45 Nitroglycerin 0.4 mg Q5MINP PRN SL 07/16/25 10:45 UNV Morphine Sulfate 2 mg Q30M PRN IV 07/16/25 10:45 Enoxaparin Sodium 40 mg DAILY SC 07/17/25 10:00 07/17/25 10:04 40 MG laboratory and microbiology Laboratory Tests 07/17/25 06:22 Test 07/17/25 06:22 Range/Units Serum Glucose 98 74-106 mg/dL Assessment/Plan pulm nodules med lymphadenopathy smoker h/o prostate cancer pt seen and examined lungs clear CT report No evidence for large pulmonary embolism. Prominent bilateral hilar and mediastinal lymphadenopathy which can be secondary to infectious, inflammatory, neoplastic etiologies. Small bilateral pulmonary nodules up to 5 mm. Recommend follow-up per Fleischner society criteria guidelines. Coronary artery calcification disease. Cholelithiasis. plan nodules small not amenable to bx recommend follow up CT in 3-4 months ok to discharge from pulm standpoint Plan discussed with: Patient RADHA MADSEN MD Jul 17, 2025 12:42
--- NOTE | 2025-07-17 15:16 | DVHPN2 ---
Reviewed: H&P Changes from previous H/P or p: No Changes General: Per HPI Cardiovascular: Chest Pain Objective Vitals Vital Signs Date Time Temp Pulse Resp B/P (MAP) Pulse Ox O2 Delivery O2 Flow Rate FiO2 07/17/25 13:00 98.1 69 17 116/72 (87) 95 98.1 07/17/25 08:00 Room Air* 0 21 Intake/Output Intake and Output 07/17/25 07:00 Intake Total 600 ml Balance 600 ml Intake Oral 600 ml # Voids 2 # Bowel Movements 1 Exam General Appearance: Alert, Oriented X3, Cooperative, No acute distress HEENT: Atraumatic, PERRLA, EOMI, Mucous membr. moist/pink Respiratory: Clear to auscultation, Normal air movement Cardiovascular: Regular rate, Normal S1, Normal S2, No murmurs Abdominal: Normal bowel sounds, Soft Extremities: No clubbing, No cyanosis, Normal pulses Skin: No significant lesion Neuro: Normal gait, Normal speech, Strength at 5/5 X4 ext, Normal tone, Sensation intact Psych/Mental Status: Mental status NL, Mood NL Medications Current Medications Medications Dose Ordered Sig/Callie Route Start Time Stop Time Status Last Admin Dose Admin Aspirin 81 mg DAILY PO 07/17/25 10:00 07/17/25 10:04 81 MG Atorvastatin Calcium 40 mg HS PO 07/16/25 22:00 07/16/25 23:26 40 MG Morphine Sulfate 2 mg Q30MP PRN IV 07/16/25 10:45 Acetaminophen 650 mg Q6HP PRN PO 07/16/25 10:45 Nitroglycerin 0.4 mg Q5MINP PRN SL 07/16/25 10:45 Ondansetron HCl 4 mg Q4HP PRN IV 07/16/25 10:45 Nitroglycerin 0.4 mg Q5MINP PRN SL 07/16/25 10:45 UNV Morphine Sulfate 2 mg Q30M PRN IV 07/16/25 10:45 Enoxaparin Sodium 40 mg DAILY SC 07/17/25 10:00 07/17/25 10:04 40 MG Laboratory Results Laboratory Tests 07/17/25 06:22 Chemistry Test 07/17/25 06:22 Calcium Level 9.0 mg/dL (8.7-10.4) Magnesium Level 1.9 mg/dL (1.6-2.6) Lipid panel Test 07/17/25 06:22 Cholesterol Level 79 mg/dL (< 200) HDL Cholesterol 27 mg/dL (40-59) L Triglycerides Level 62 mg/dL (< 150) Urinalysis Test 07/16/25 09:49 Urine Color Yellow (Yellow) Urine Clarity Clear (Clear) Urine pH 5.5 (5.0-9.0) Urine Specific [place] 1.018 (1.001-1.035) Urine Protein Negative (Negative) Urine Ketones Negative (Negative) Urine Blood Negative /uL (Negative) Urine Nitrite Negative (Negative) Urine Bilirubin Negative (Negative) Urine Urobilinogen Normal mg/dL (Negative) Urine Leukocyte Esterase Negative /uL (Negative) Urine RBC 1 /hpf (0 - 3) Urine Microscopic WBC 1 /HPF (0-3) Urine Squamous Epithelial Cells Few /hpf (<5) Urine Bacteria None seen /hpf (None Seen) Urine Glucose Normal mg/dL (Normal) Labs and/or images reviewed: Labs reviewed by me, Image(s) reviewed by me Assessment/Plan Assessment/Plan 69-year-old male with past medical history of hyperlipidemia, hypertension, prostate cancer, [place], AAA status post 2 stents, hernia repair, and tonsillectomy who presents to the ED with epigastric pain that started this morning around 430, reported that it woke him up from his sleep. Reports that the pain is 10/10 burning and constant. He reports that the pain is worse when he deep breathes however is better when he does not take deep breaths. Patient reports that the pain does not radiate anywhere. He also endorses that he eats spicy and greasy foods. Patient denies any recent trauma or injury, recent sick contacts, recent travels, recent ingestion of spoiled food, shortness of breath, fever, chills, lightheadedness, weakness, dizziness, nausea, vomiting, diarrhea, or urinary symptoms. 07/17: Troponins negative, CTA negative for PE. Patient here for ACS rule out. Patient continues to have pain intermittently, he describes as burning. Patient recently had binge of spicy food, but there is also sternal palpation on chest. Costochondritis remain on differential, GERD likely. We will start Protonix. diagnosis: chest pain rule out ACS GERD likely ? Costochondritis possible Vape use History of hyperlipidemia History of hypertension History of prostate cancer History of [place] History of AAA status post 2 stents History of hernia repair History of tonsillectomy plan: Aspirin 81, DVT prophylaxis Lovenox Lipitor His, Zofran PRN antiemetic Protonix 40 IV daily Tele Full code Plan discussed with: Patient Date of Service: Jul 17, 2025 Billing Provider: MARTY ROBERTSON MD Common Visit Codes: [id number] INP/OBS CARE(HIGH) MARTY ROBERTSON MD Jul 17, 2025 15:16
[2025-07-17] MEDS: PANTOPRAZOLE 40 MG/10 ML VIAL INJ IV SCH (17:13)
--- NOTE | 2025-07-17 22:33 | DVHINCON2 ---
Date of service: Jul 17, [address] Naya GAONA [facility] [place] Reason for Consultation Pulmonary nodules History of Present Illness A 69-year-old man with past medical history of CA, hyperlipidemia, hypertension, prostate cancer, and AAA status post 2 stents, who presented to the ED on 07/16/25 with epigastric pain that started on the morning of presentation around 4:30, reported that it woke him up from his sleep. Reported pain was 10/10, burning and constant, worse when he takes a deep breath, nonradiating. He admits to eating spicy and greasy foods. Patient denied any recent trauma or injury, recent sick contacts, shortness of breath, fever, chills, GI/ symptoms or other acute complaints. Patient was admitted for further care. Pulmonary consultation is requested for evaluation and management due to pulmonary nodules. Review of Systems: 14-point review of systems negative unless otherwise noted above. Past Medical History: Hyperlipidemia, hypertension, prostate cancer, [place], AAA. Past Surgical History: Hernia Repair, Other (Status post 2 stents in the aorta per patient), Tonsillectomy Medications: Reviewed. Allergies: No known drug allergies. Family History: Cancer, Other (Dad with lung cancer . Mom with brain tumor .) Social History: Patient quit smoking in 2018; smoked 1 PPD for >30 years. Admits to vaping. No alcohol or illicit drug use. Family History: FH: cancer G8 MOTHER G8 FATHER Parents Allergies: Coded Allergies: NO KNOWN ALLERGIES (Unverified , 05/15/20) Home Meds Active Scripts Pantoprazole Sodium Sesquihydr (Protonix) 40 Mg Tab, 40 MG PO DAILY for 30 Days, #30 TAB 0 Refills Prov:MARTY ROBERTSON MD 07/18/25 Reported Medications Atorvastatin Calcium (ATORVASTATIN CALCIUM) 80 Mg Tab, 80 MG PO HS, TAB 07/17/25 Lisinopril (Lisinopril) 10 Mg Tab, 10 MG PO DAILY for 30 Days, MG 07/17/25 Aspirin (Aspirin Low Dose) 81 Mg Tab, 1 TAB PO DAILY 02/10/25 Discontinued Reported Medications Clopidogrel Bisulfate (CLOPIDOGREL) 75 Mg Tab, 75 MG PO DAILY for 30 Days, MG 07/17/25 Hctz (Hydrochlorothiazide) 25 Mg Tab, 12.5 MG PO DAILY, TAB 07/17/25 Ibuprofen Micronized (Ibuprofen) 800 Mg Tab, 800 MG PO Q8HPRN, TAB 02/10/25 Polyethylene Glycol 3350 (Glycolax) 17 Gm/Scoop Pow, 17 GM PO DAILY, POW 02/10/25 Atorvastatin Calcium (Lipitor) 80 Mg Tab, 1 TAB PO DAILY, #30 TAB 5 Refills 02/10/25 Hctz (Hydrochlorothiazide) 25 Mg Tab, 1 TAB PO DAILY 02/10/25 Discontinued Scripts Omeprazole (Gnp Omeprazole) 20 Mg Tab, 20 MG PO BID for 10 Days, #20 TAB Prov:RACHNA CARRINGTON MD 03/01/25 Current Medications Current Medications Medications (Trade) Dose Ordered Sig/Callie Route PRN Reason Start Time Stop Time Status Last Admin Aspirin 81 mg DAILY PO 07/17/25 10:00 07/17/25 10:04 Enoxaparin Sodium (Lovenox) 40 mg DAILY SC 07/17/25 10:00 07/17/25 10:04 Pantoprazole Sodium (Protonix) 40 mg DAILY IV 07/17/25 15:30 07/17/25 17:13 Vital Signs Vital Signs Date Time Temp Pulse Resp B/P (MAP) Pulse Ox O2 Delivery O2 Flow Rate FiO2 07/17/25 21:00 97.9 77 18 112/67 (82) 93 97.9 07/17/25 20:00 Room Air* 0 21 Physical Exam Gen.: Patient lying in bed in no apparent distress. Breathing on room air. Head: Normocephalic, atraumatic. Eyes: EOMI/PERRLA. Ears: Normal hearing. Normal anatomy. Neck/trachea: Trachea midline, supple. Nose: Normal external anatomy. Mouth: Moist mucous membranes. Chest: Decreased air entry bilaterally. No wheezing or rhonchi. Cardiovascular: Positive S1, positive S2. Regular rate and rhythm. Abdomen: Positive bowel sounds in all 4 quadrants. Soft, non-tender, non- distended. : Deferred. Rectal: Deferred. Skin: Warm, dry. Intact. Extremities: 2+ radial pulses bilaterally. No lower extremity edema. Neuro: Awake, alert, oriented x3. No gross motor or sensory deficits. Cranial nerves II through XII intact. Gait not assessed. Labs/Diagnostic Data Labs Test 07/17/25 06:22 07/16/25 15:38 07/16/25 11:14 07/16/25 10:08 Range/Units White Blood Count 8.6 4.4-10.8 10^3/uL Red Blood Count 4.46 L 4.5-5.90 10^6/uL Hemoglobin 13.7 13.5-17.5 g/dL Hematocrit 39.7 L 41.0-53.0 % Mean Corpuscular Volume 89.1 80.0-100.0 fL Mean Corpuscular Hemoglobin 30.8 28.0-32.0 pg Mean Corpuscular Hemoglobin Concent 34.6 32.0-36.0 g/dL Red Cell Distribution Width 13.0 11.8-14.3 % Platelet Count 187 140-450 10^3/uL Mean Platelet Volume 9.0 6.9-10.8 fL Neutrophils (%) (Auto) 68.9 37.0-80.0 % Lymphocytes (%) (Auto) 19.2 10.0-50.0 % Monocytes (%) (Auto) 9.1 0.0-12.0 % Eosinophils (%) (Auto) 2.5 0.0-7.0 % Basophils (%) (Auto) 0.3 0.0-2.0 % Neutrophils # (Auto) 6.0 1.6-8.6 10 ^3/uL Lymphocytes # (Auto) 1.7 0.4-5.4 10 ^3/uL Monocytes # (Auto) 0.8 0-1.3 10 ^3/uL Eosinophils # (Auto) 0.2 0-0.8 10 ^3/uL Basophils # (Auto) 0 0-0.2 10 ^3/uL Nucleated Red Blood Cells 0.1 % Sodium Level 138 136-145 mmol/L Potassium Level 3.9 3.5-5.1 mmol/L Chloride Level 101 98-107 mmol/L Carbon Dioxide Level 27 20-31 mmol/L Anion Gap 10 5-15 Blood Urea Nitrogen 25 H 9-23 mg/dL Creatinine 1.19 0.700-1.30 mg/dL Glomerular Filtration Rate Calc 66 >90 mL/min BUN/Creatinine Ratio 21.0 H 10.0-20.0 Serum Glucose 98 74-106 mg/dL Calcium Level 9.0 8.7-10.4 mg/dL Magnesium Level 1.9 1.6-2.6 mg/dL Troponin I High Sensitivity 4 </=54 ng/L Triglycerides Level 62 < 150 mg/dL Cholesterol Level 79 < 200 mg/dL LDL Cholesterol 42 < 100 mg/dL HDL Cholesterol 27 L 40-59 mg/dL Lactic Acid Level 0.9 0.4-2.0 mmol/L Hemoglobin A1c 5.6 <5.7 % A1C C-Reactive Protein High Sensitivity 0.27 <1.0 mg/dL Free Thyroxine (T4) Calculated 1.31 0.89-1.76 ng/dL SARS-CoV-2 Antigen (Rapid) Negative NEGATIVE Test 07/16/25 09:49 07/16/25 09:20 Range/Units Urine Color Yellow Yellow Urine Clarity Clear Clear Urine pH 5.5 5.0-9.0 Urine Specific [place] 1.018 1.001-1.035 Urine Protein Negative Negative Urine Ketones Negative Negative Urine Blood Negative Negative /uL Urine Nitrite Negative Negative Urine Bilirubin Negative Negative Urine Urobilinogen Normal Negative mg/dL Urine Leukocyte Esterase Negative Negative /uL Urine RBC 1 0 - 3 /hpf Urine Microscopic WBC 1 0-3 /HPF Urine Squamous Epithelial Cells Few <5 /hpf Urine Bacteria None seen None Seen /hpf Urine Glucose Normal Normal mg/dL Urine Opiates Screen Neg NEGATIVE Urine Fentanyl Screen Neg NEGATIVE Urine Barbiturates Screen Neg NEGATIVE Urine Phencyclidine Screen Neg NEGATIVE Urine Amphetamines Screen Neg NEGATIVE Urine Benzodiazepines Screen Neg NEGATIVE Urine Cocaine Screen Neg NEGATIVE Urine Cannabinoids Screen Neg NEGATIVE D-Dimer, Quantitative 3.50 H 0.0-0.49 mg/L FEU Thyroid Stimulating Hormone (TSH) 1.66 0.55-4.78 uIU/mL Assessment Impression: Pulmonary nodules, 5 mm Mediastinal lymphadenopathy Hx of nicotine dependence Vaping use Obesity Hx of prostate cancer Plan: On room air Supplemental oxygen PRN Titrate to keep O2 sats above 92%. CT angio reveals no evidence for large pulmonary embolism. Prominent bilateral hilar and mediastinal lymphadenopathy which can be secondary to infectious, inflammatory, neoplastic etiologies. Small bilateral pulmonary nodules up to 5 mm. Coronary artery calcification and cholelithiasis. Recommend follow up CT chest in 6-12 months. CXR showing no acute cardiopulmonary process. On aspirin Lipitor Monitor renal function. Monitor electrolytes. Supplement as necessary. Monitor ins and outs. Patient quit smoking in 2018; smoked 1 PPD for >30 years. Continues to abstain. Counseled against vaping use. Recommend diet and lifestyle modifications for weight reduction Obesity complicates all care GI prophylaxis - Protonix DVT prophylaxis - Lovenox. Prognosis: Poor given patient's multiple co-morbidities. Rest of plan per hospitalist and other consultants. Thank you, Dr. Person, for allowing me to participate in this patient's care. Further recommendations will depend on the patient's clinical course. Please do not hesitate to contact me if you have any questions or concerns. This medical document was created using an electronic medical record system with [employer] dictation system. Although these documentations are being carefully reviewed, there may still be some phonetic and typographical changes. The errors are purely typographical, due to imperfection on the software program, and do not reflect any compromise in the patient's medical care. Plan discussed with: Patient, Other (ISAIAH Jones/) Visit Coding Pulmonary Billing Provider: ANGELICA CLAY MD Date of Service if different f: Jul 17, 2025 Common Visit Codes: [id number] INP/OBS CARE (HIGH) ANGELICA CLAY MD Jul 17, 2025 22:33
[2025-07-18 05:00] VITALS: BP 108/72; PULSE 69; RESP 18; TEMP 98; O2SAT 98
[2025-07-18 07:10] LABS: Chloride 101 mmol/L (98-107); Potassium 4.0 mmol/L (3.5-5.1); Sodium 137 mmol/L (136-145)
[2025-07-18 07:11] LABS: Anion Gap 9 (5-15); Carbon Dioxide 27 mmol/L (20-31)
[2025-07-18 07:12] LABS: Calcium 8.9 mg/dL (8.7-10.4)
[2025-07-18 07:16] LABS: BUN/Creatinine Ratio 14.3 (10.0-20.0); Blood Urea Nitrogen 17 mg/dL (9-23)
[2025-07-18 07:21] LABS: Glucose 107 mg/dL (74-106)
[2025-07-18 08:00] VITALS: PULSE 55
[2025-07-18 09:00] VITALS: BP 109/69; PULSE 63; RESP 18; TEMP 98; O2SAT 96
[2025-07-18] MEDS ORDERED: PANT40TA2 PO (12:02)
--- NOTE | 2025-07-18 12:03 | DVHDS2 ---
Discharge Summary Date of Admission Jul 16, 2025 at 10:39 Date of Discharge: Jul 18, 2025 Labs/Diagnostic Data: Laboratory Results Test 07/18/25 05:48 07/17/25 06:22 07/16/25 15:38 07/16/25 11:14 Sodium Level 137 mmol/L (136-145) Potassium Level 4.0 mmol/L (3.5-5.1) Chloride Level 101 mmol/L (98-107) Carbon Dioxide Level 27 mmol/L (20-31) Anion Gap 9 (5-15) Blood Urea Nitrogen 17 mg/dL (9-23) Creatinine 1.19 mg/dL (0.700-1.30) Glomerular Filtration Rate Calc 66 mL/min (>90) BUN/Creatinine Ratio 14.3 (10.0-20.0) Serum Glucose 107 mg/dL (74-106) Calcium Level 8.9 mg/dL (8.7-10.4) White Blood Count 8.6 10^3/uL (4.4-10.8) Red Blood Count 4.46 10^6/uL (4.5-5.90) Hemoglobin 13.7 g/dL (13.5-17.5) Hematocrit 39.7 % (41.0-53.0) Mean Corpuscular Volume 89.1 fL (80.0-100.0) Mean Corpuscular Hemoglobin 30.8 pg (28.0-32.0) Mean Corpuscular Hemoglobin Concent 34.6 g/dL (32.0-36.0) Red Cell Distribution Width 13.0 % (11.8-14.3) Platelet Count 187 10^3/uL (140-450) Mean Platelet Volume 9.0 fL (6.9-10.8) Neutrophils (%) (Auto) 68.9 % (37.0-80.0) Lymphocytes (%) (Auto) 19.2 % (10.0-50.0) Monocytes (%) (Auto) 9.1 % (0.0-12.0) Eosinophils (%) (Auto) 2.5 % (0.0-7.0) Basophils (%) (Auto) 0.3 % (0.0-2.0) Neutrophils # (Auto) 6.0 10 ^3/uL (1.6-8.6) Lymphocytes # (Auto) 1.7 10 ^3/uL (0.4-5.4) Monocytes # (Auto) 0.8 10 ^3/uL (0-1.3) Eosinophils # (Auto) 0.2 10 ^3/uL (0-0.8) Basophils # (Auto) 0 10 ^3/uL (0-0.2) Nucleated Red Blood Cells 0.1 % Magnesium Level 1.9 mg/dL (1.6-2.6) Troponin I High Sensitivity 4 ng/L (</=54) Triglycerides Level 62 mg/dL (< 150) Cholesterol Level 79 mg/dL (< 200) LDL Cholesterol 42 mg/dL (< 100) HDL Cholesterol 27 mg/dL (40-59) Lactic Acid Level 0.9 mmol/L (0.4-2.0) Hemoglobin A1c 5.6 % A1C (<5.7) C-Reactive Protein High Sensitivity 0.27 mg/dL (<1.0) Free Thyroxine (T4) Calculated 1.31 ng/dL (0.89-1.76) Test 07/16/25 10:08 07/16/25 09:49 07/16/25 09:20 SARS-CoV-2 Antigen (Rapid) Negative (NEGATIVE) Urine Color Yellow (Yellow) Urine Clarity Clear (Clear) Urine pH 5.5 (5.0-9.0) Urine Specific [place] 1.018 (1.001-1.035) Urine Protein Negative (Negative) Urine Ketones Negative (Negative) Urine Blood Negative /uL (Negative) Urine Nitrite Negative (Negative) Urine Bilirubin Negative (Negative) Urine Urobilinogen Normal mg/dL (Negative) Urine Leukocyte Esterase Negative /uL (Negative) Urine RBC 1 /hpf (0 - 3) Urine Microscopic WBC 1 /HPF (0-3) Urine Squamous Epithelial Cells Few /hpf (<5) Urine Bacteria None seen /hpf (None Seen) Urine Glucose Normal mg/dL (Normal) Urine Opiates Screen Neg (NEGATIVE) Urine Fentanyl Screen Neg (NEGATIVE) Urine Barbiturates Screen Neg (NEGATIVE) Urine Phencyclidine Screen Neg (NEGATIVE) Urine Amphetamines Screen Neg (NEGATIVE) Urine Benzodiazepines Screen Neg (NEGATIVE) Urine Cocaine Screen Neg (NEGATIVE) Urine Cannabinoids Screen Neg (NEGATIVE) D-Dimer, Quantitative 3.50 mg/L FEU (0.0-0.49) Thyroid Stimulating Hormone (TSH) 1.66 uIU/mL (0.55-4.78) Other Laboratory Tests 07/18/25 05:48 07/17/25 06:22 Brief Hx & Hospital Course: 69-year-old male with past medical history of hyperlipidemia, hypertension, prostate cancer, NH, AAA status post 2 stents, hernia repair, and tonsillectomy who presents to the ED with epigastric pain that started this morning around 430, reported that it woke him up from his sleep. Reports that the pain is 10/10 burning and constant. He reports that the pain is worse when he deep breathes however is better when he does not take deep breaths. Patient reports that the pain does not radiate anywhere. He also endorses that he eats spicy and greasy foods. Patient denies any recent trauma or injury, recent sick contacts, recent travels, recent ingestion of spoiled food, shortness of breath, fever, chills, lightheadedness, weakness, dizziness, nausea, vomiting, diarrhea, or urinary symptoms. 07/17: Troponins negative, CTA negative for PE. Patient here for ACS rule out. Patient continues to have pain intermittently, he describes as burning. Patient recently had binge of spicy food, but there is also sternal palpation on chest. Costochondritis remain on differential, GERD likely. We will start Protonix. 07/18: Patient is feeling better with Protonix. Reviewed tele, no concerning changes on tele. Patient is stable for discharge per plan below. diagnosis: chest pain, ruled out ACS , likely costochondritis GERD likely Costochondritis possible Vape use History of hyperlipidemia History of hypertension History of prostate cancer History of NH History of AAA status post 2 stents History of hernia repair History of tonsillectomy Plan: -Start Protonix 40 mg daily for 30 days --continue other home medications -Avoid spicy foods - stop Plavix, hydrochlorothiazide. -Continue other home medications not mentioned above (continue aspirin, Lipitor, lisinopril) -Follow up with PCP Condition at Discharge: Fair Final Diagnosis/Problems List chest pain, ruled out ACS , likely costochondritis GERD likely Costochondritis possible Vape use History of hyperlipidemia History of hypertension History of prostate cancer History of NH History of AAA status post 2 stents History of hernia repair History of tonsillectomy Discharge Disposition: Home Discharge Instruct/Medications Scheduled Aspirin (Aspirin Low Dose), 1 TAB PO DAILY, (Reported) Atorvastatin Calcium (Atorvastatin Calcium), 80 MG PO HS, (Reported) Clopidogrel Bisulfate (Clopidogrel), 75 MG PO DAILY, (Reported) Hctz (Hydrochlorothiazide), 12.5 MG PO DAILY, (Reported) Lisinopril (Lisinopril), 10 MG PO DAILY, (Reported) Omeprazole (Gnp Omeprazole), 20 MG PO BID Discontinued Medications Atorvastatin Calcium (Lipitor), 1 TAB PO DAILY, (Reported) Hctz (Hydrochlorothiazide), 1 TAB PO DAILY, (Reported) Ibuprofen Micronized (Ibuprofen), 800 MG PO Q8HPRN, (Reported) Polyethylene Glycol 3350 (Glycolax), 17 GM PO DAILY, (Reported) Discharge Statement: "Patient was advised to return to the ER or call 911 if any headaches, dizziness, shortness of breath, chest pain, abdominal pain, bleeding, fevers, or worsening of medical condition. Patient was counseled about treatment plan, medications, possible side effects, patientverbalized understanding. All questions were answered to the best of my ability. This discharge took greater then 30 minutes in planning, reviewing documentation, counseling the patient, and discussing with other team members." ASSESSMENT ASSESSMENT Assessment Date of Service: Jul 18, 2025 Billing Provider: MARTY ROBERTSON MD Common Visit Codes: 30582-OYO/OBS DISCH DAY >30min MARTY ROBERTSON MD Jul 18, 2025 12:03
[2025-07-18 13:00] VITALS: BP 117/74; PULSE 54; RESP 18; TEMP 98; O2SAT 96
--- NOTE | 2025-07-18 14:03 | DVHPN2 ---
Progress Note - Dictate Date Seen: Jul 18, 2025 Medical Necessity Reason Pt with a Central, PICC or Fol: No vital signs Vital Sign Date Time Temp Pulse Resp B/P (MAP) Pulse Ox O2 Delivery O2 Flow Rate FiO2 07/18/25 13:00 98.0 54 18 117/74 (88) 96 98.0 07/18/25 08:10 Room Air* 0 21 Total Intake and Output 07/17/25 07/17/25 07/18/25 15:00 23:00 07:00 Intake Total 1050 ml 800 ml Balance 1050 ml 800 ml medications Current Medications Medications Dose Ordered Sig/Callie Route Start Time Stop Time Status Last Admin Dose Admin Aspirin 81 mg DAILY PO 07/17/25 10:00 07/18/25 10:04 81 MG Atorvastatin Calcium 40 mg HS PO 07/16/25 22:00 07/17/25 21:09 40 MG Morphine Sulfate 2 mg Q30MP PRN IV 07/16/25 10:45 Acetaminophen 650 mg Q6HP PRN PO 07/16/25 10:45 Nitroglycerin 0.4 mg Q5MINP PRN SL 07/16/25 10:45 Ondansetron HCl 4 mg Q4HP PRN IV 07/16/25 10:45 Nitroglycerin 0.4 mg Q5MINP PRN SL 07/16/25 10:45 UNV Morphine Sulfate 2 mg Q30M PRN IV 07/16/25 10:45 Enoxaparin Sodium 40 mg DAILY SC 07/17/25 10:00 07/18/25 10:04 40 MG Pantoprazole Sodium 40 mg DAILY IV 07/17/25 15:30 07/18/25 10:04 40 MG laboratory and microbiology Laboratory Tests 07/18/25 05:48 07/17/25 06:22 Test 07/18/25 05:48 Range/Units Serum Glucose 107 H 74-106 mg/dL Assessment/Plan pulm nodules med lymphadenopathy smoker h/o prostate cancer pt seen and examined lungs clear CT report No evidence for large pulmonary embolism. Prominent bilateral hilar and mediastinal lymphadenopathy which can be secondary to infectious, inflammatory, neoplastic etiologies. Small bilateral pulmonary nodules up to 5 mm. Recommend follow-up per Fleischner society criteria guidelines. Coronary artery calcification disease. Cholelithiasis. plan nodules small not amenable to bx recommend follow up CT in 3-4 months ok to discharge from pulm standpoint Plan discussed with: Other RADHA MADSEN MD Jul 18, 2025 14:03
== END 2025-07-18 15:55 | disposition home or self-care (01) | DRG 206 ==
LOC: ER 08:00 → OVERFLOW 10:39 → TELE-CENTR 22:30
PROVIDERS: ADMIT Student in an Organized Health Care Education/Training Program; ATTEND Student in an Organized Health Care Education/Training Program
DX: M94.0 Chondrocostal junction syndrome [Tietze] (principal); K21.9 Gastro-esophageal reflux disease without esophagitis; I25.10 Atherosclerotic heart disease of native coronary artery without angina pectoris; I71.40 Abdominal aortic aneurysm, without rupture, unspecified; Z20.822 Contact with and (suspected) exposure to COVID-19; I10 Essential (primary) hypertension; K80.20 Calculus of gallbladder without cholecystitis without obstruction; R59.0 Localized enlarged lymph nodes; E66.01 Morbid (severe) obesity due to excess calories; E78.5 Hyperlipidemia, unspecified; Z87.891 Personal history of nicotine dependence; Z95.5 Presence of coronary angioplasty implant and graft; Z79.899 Other long term (current) drug therapy; Z79.82 Long term (current) use of aspirin; Z79.02 Long term (current) use of antithrombotics/antiplatelets; I25.2 Old myocardial infarction; Z85.46 Personal history of malignant neoplasm of prostate; Z80.1 Family history of malignant neoplasm of trachea, bronchus and lung; Z68.23 Body mass index [BMI] 23.0-23.9, adult
CPT/HCPCS: 36415; 71046; 71275; 80048; 80061; 80307; 81001; 83036; 83605; 83735; 84439; 84443; 84484; 85025; 85379; 86141; 87426; 93005; G0378; J2470

== ENCOUNTER 2025-08-21 10:29 | Outpatient (CLI) | payer MEDICARE, MEDICAID ==
[~2025-08-21 10:29] MED LIST changes: +ATOR-47 PO; -ATOR80TA PO; -HYDR25TA5 PO; -IBUP-1455 PO; +LISI10TA34 PO; -OMEP20TA PO; +PANT40TA2 PO; -[UNRECOGNIZED DRUG - CODE] PO
== END 2025-08-21 17:00 | disposition home or self-care (01) ==
LOC: XYW 10:29
PROVIDERS: ATTEND Internal Medicine Pulmonary Disease
DX: R06.00 Dyspnea, unspecified (principal); F17.210 Nicotine dependence, cigarettes, uncomplicated; Z79.899 Other long term (current) drug therapy
CPT/HCPCS: 94060; 94618; 94729